=== PATIENT | female | born 1980 | race Caucasian/White ===

== ENCOUNTER 2017-01-06 22:54 | Emergency (ER) | payer MEDICARE, OTHER ==
[2017-01-06 23:04] VITALS: RESP 18
--- NOTE | 2017-01-07 00:15 | ED ---
Female Urogenital HPI - General Chief complaint: Urogenital Stated complaint: Female Time Seen by Provider: 01/06/17 23:20 Source: patient Mode of arrival: ambulatory Limitations: no limitations - Related Data Home Medications Medication Instructions Recorded Confirmed Dextroamphetamine/Amphetamine 20 mg PO DAILY 01/06/17 01/06/17 [Adderall] Paliperidone [Invega] 6 mg PO DAILY 01/06/17 01/06/17 clonazePAM [KlonoPIN] 2 mg PO BID 01/06/17 01/06/17 Allergies Allergy/AdvReac Type Severity Reaction Status Date / Time No Known Allergies Allergy Verified 01/06/17 23:04 Review of Systems ROS Statement: Those systems with pertinent positive or pertinent negative responses have been documented in the HPI. ROS Other: All systems not noted in ROS Statement are negative. Past Medical History Past Medical History: No Reported History History of Any Multi-Drug Resistant Organisms: None Reported Past Surgical History: Orthopedic Surgery Additional Past Surgical History / Comment(s): Left ankle surgery Past Psychological History: Anxiety, Bipolar, Depression, Panic Disorder Smoking Status: Never smoker Past Alcohol Use History: None Reported Past Drug Use History: None Reported General Exam Limitations: no limitations Course Vital Signs 01/06/17 23:02 Temperature 98.0 F Pulse Rate 71 Respiratory 18 Rate Blood Pressure 118/67 O2 Sat by Pulse 100 Oximetry Disposition Clinical Impression: No problem, feared complaint unfounded Disposition: HOME SELF-CARE Condition: Good Instructions: Vaginal Foreign Body (ED) Referrals: Jeremy Key MD [Primary Care Provider] - 1-2 days Hilary Salmon MD [STAFF PHYSICIAN] - 1-2 days
[2017-01-07 00:32] VITALS: BP 135/65; PULSE 69; TEMP 97.7
== END 2017-01-07 00:45 | disposition home or self-care (01) ==
LOC: EC 22:54
DX: N94.9 Unspecified condition associated with female genital organs and menstrual cycle (principal); F31.9 Bipolar disorder, unspecified; F41.9 Anxiety disorder, unspecified; F41.0 Panic disorder [episodic paroxysmal anxiety]; Z79.899 Other long term (current) drug therapy
CPT/HCPCS: 99283

== ENCOUNTER → 2017-01-09 | Outpatient (CLI) | payer MEDICARE, OTHER ==
[2017-01-10 04:41] LABS: HIV-1/HIV-2 Ab Screen NONREAC (NON REAC)
== END ==
LOC: LABWHC1 14:14
PROVIDERS: ATTEND Obstetrics & Gynecology
DX: R53.83 Other fatigue (principal); Z11.3 Encounter for screening for infections with a predominantly sexual mode of transmission
CPT/HCPCS: 36415; 86780; 87389

== ENCOUNTER 2017-02-10 22:19 | Inpatient (IN) | payer MEDICARE, MEDICAID ==
[2017-02-10] MEDS ORDERED: IBUPROFEN 600 MG TAB PO STA (23:08)
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
[2017-02-11] MEDS ORDERED: clonazePAM 1 MG TAB PO STA (01:46)
[2017-02-11] MEDS ORDERED: ACETAMINOPHEN TAB 325 MG TAB PO PRN (02:46)
[2017-02-11] MEDS ORDERED: MAGNESIUM HYDROXIDE 2,400 MG/10 ML CUP PO PRN (02:46)
[2017-02-11] MEDS ORDERED: OLANZapine 5 MG TAB PO PRN (02:49)
[2017-02-11 03:50] LABS: Appearance,Urine Clear (Clear); Bacteria,Urine Occasional /hpf; Bilirubin,Urine Negative (Negative); Glucose,Urine (UA) Negative (Negative); Granular Casts,Urine 1 /lpf (0); Ketones,Urine Negative (Negative); Leukocyte Esterase,Urine Negative (Negative); Mucus,Urine Rare /hpf; Nitrite,Urine Negative (Negative); PH, Urine 6.5 (5.0-8.0); Particle Count 1752; Protein,Urine Negative (Negative); RBC,Urine 3 /hpf (0-5); Specific Gravity,Urine 1.015 (1.001-1.035); Squamous Epithelial Cell,Urine 1 /hpf (0-4); UA Billing (MACRO vs. MICRO) MICRO; Urobilinogen,Urine <2.0 mg/dL (<2.0); WBC,Urine 1 /hpf (0-5)
[2017-02-11] MEDS: LORazepam 1 MG TAB PO PRN (05:46)
[2017-02-11 08:48] LABS: Basophils % (A) 1 %; CH 29.7; CHCM 34.5; Eosinophils # (A) 0.2 k/uL (0-0.7); Eosinophils % (A) 4 %; HCT 38.7 % (34.0-46.0); HDW 2.54; HGB 13.5 gm/dL (11.4-16.0); Luc # (Auto) 0.14; Luc % (Auto) 3; Lymphocytes % (A) 38 %; MCH 30.2 pg (25.0-35.0); MCHC 34.9 g/dL (31.0-37.0); MCV 86.6 fL (80.0-100.0); Monocytes # (A) 0.3 k/uL (0-1.0); Monocytes % (A) 6 %; Neutrophils # (A) 2.5 k/uL (1.3-7.7); Neutrophils % (A) 49 %; RBC 4.47 m/uL (3.80-5.40); RDW 12.8 % (11.5-15.5); WBC 5.2 k/uL (3.8-10.6); WBC (Perox) 5.12
[2017-02-11 09:47] LABS: ALT 29 U/L (9-52); AST 27 U/L (14-36); Alkaline Phosphatase 75 U/L (38-126); Anion Gap 12 mmol/L; Blood Urea Nitrogen 9 mg/dL (7-17); Calcium 9.4 mg/dL (8.4-10.2); Carbon Dioxide 25 mmol/L (22-30); Chloride 104 mmol/L (98-107); Glucose 95 mg/dL (74-99); Non-African American GFR(MDRD) >60 (>60 ml/min/1.73 sqM); Potassium 3.6 mmol/L (3.5-5.1); Sodium 141 mmol/L (137-145); Total Bilirubin 0.6 mg/dL (0.2-1.3); Total Protein 7.8 g/dL (6.3-8.2)
[2017-02-11] MEDS ORDERED: IBUPROFEN 600 MG TAB PO PRN (10:34)
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
[2017-02-11] MEDS: DIAZEPAM 5 MG TAB PO SCH ×3 (13:07→21:04)
[2017-02-11] MEDS: LURASIDONE 40 MG TAB PO SCH (13:07)
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
[2017-02-11] MEDS ORDERED: LURASIDONE 40 MG TAB PO SCH (21:00)
[2017-02-12] MEDS: DIAZEPAM 5 MG TAB PO SCH ×2 (06:31→21:26)
[2017-02-12] MEDS: LURASIDONE 40 MG TAB PO SCH ×2 (08:40→20:02)
--- NOTE | 2017-02-12 19:37 | P.PN ---
Progress Note - Text DATE OF SERVICE: 02/12/2017 CHIEF COMPLAINT: The patient was admitted due to anger outbursts with agitation , aggressive behavior, paranoia, auditory hallucinations and history of rage attacks. She has a history of bipolar affective disorder and multiple psychiatric hospitalizations. She was admitted on petition for involuntary hospitalization. INTERVAL HISTORY: The patient has been doing fair. She had some ups and downs in her behavior and function. Last evening staff noted that she had an episode where she was in her room singing loudly and laughing quite intensely. When I asked the patient how she slept she said fine and that she had slept all night. When I noted that she had this behavior she then said that she recalled staying up for quite a while and that it was hard for her to fall asleep. She accepted the idea that she probably only slept for 3 hours. Today she has been up and about. She attended to groups and was appropriate without signs of manic or hypomanic behaviors. She said that she has some anxiety though she has not felt any anger or rageful feelings. She believes the medications have been helping her. She hasn't had change in her general health. She tolerates her psychotropic medications. MENTAL STATUS EXAM: Patient gave good eye contact, though it is noted she had a somewhat staring gaze. Psychomotor activity was rather stiff. She had a somewhat masked facies throughout most of the interview though at the end of the interview she had a broad smile. When she smiled she made some comments about how she feels her brain is pulled one way and another. For most of the interview she had a somewhat reserved almost apprehensive manner. Her thoughts were clear and coherent. There was no flight of ideas, loose association or tangential thinking. Her affect was mostly blunted. Her mood reserved. She appeared somewhat distressed. ASSESSMENT: I will continue the current diagnosis and treatment plan. I will increase latuda to 40 mg twice a day which she will take after meals, morning and supper. Dr. Marquez has written to taper the patient off of Valium. I had an extensive discussion regarding her current medications and guidelines relating to treatment of bipolar disorder. The patient does indicate that she may consider switching psychiatrists from Dr. Fischer. This is something we' ll discuss with her further. We will focus on stabilization and discharge planning.
[2017-02-13] MEDS: LURASIDONE 40 MG TAB PO SCH ×2 (08:51→20:27)
[2017-02-13] MEDS ORDERED: DIAZEPAM 5 MG TAB PO SCH (09:00)
[2017-02-13] MEDS: LORazepam 1 MG TAB PO PRN ×2 (11:48→18:57)
[2017-02-14] MEDS: MAG HYDROX/AL HYDROX/SIMETH 30 ML CUP PO PRN (08:56)
[2017-02-14] MEDS: LURASIDONE 40 MG TAB PO SCH ×2 (08:57→19:07)
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
[2017-02-14] MEDS: LORazepam 1 MG TAB PO PRN (13:33)
[2017-02-15] MEDS ORDERED: ZIPRASIDONE 20 MG VIAL IM STA (06:35)
[2017-02-15] MEDS ORDERED: WATER FOR INJECTION, STERILE 10 ML IV ONE (06:42)
[2017-02-15] MEDS: LURASIDONE 40 MG TAB PO SCH ×2 (10:19→19:04)
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
[2017-02-15] MEDS: LORazepam 1 MG TAB PO PRN (19:28)
[2017-02-16] MEDS: LURASIDONE 40 MG TAB PO SCH ×2 (08:23→18:36)
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
[2017-02-16] MEDS: LORazepam 1 MG TAB PO PRN (23:28)
[2017-02-16] MEDS: ZIPRASIDONE 20 MG VIAL IM PRN (23:29)
[2017-02-17] MEDS: LURASIDONE 40 MG TAB PO SCH ×2 (08:38→18:49)
[2017-02-17] MEDS: LORazepam 1 MG TAB PO PRN ×2 (09:32→20:39)
[2017-02-17] MEDS: MAG HYDROX/AL HYDROX/SIMETH 30 ML CUP PO PRN (10:45)
--- NOTE | 2017-02-17 14:38 | P.PN ---
Progress Note - Text INTERVERAL HISTORY: She was discussed nursing staff, report that last night Elise again became distressed with anger outburst, requiring Sander IM. Today she remained in bed, stating she didn't want to get up that she was tired. *About what happened last night she was unable to explain but said that she would like to take a medicine rather than injection. We discussed again the possibility of a mood stabilizer and she was open to that possibility and would agree to taking Depakote. Staff have noticed that she does become easily irritated when asked to do certain things comply with rules on the unit. Bipolar disorder, MRE manic with psychotic features PLAN: Continue inpatient psychiatric hospitalization, for safety, and for treatment. Suicide precaution every 15 minute checks Continue Latuda 40 mg twice a day. Start Depakote tonight 500 mg, titrate up. Attempted to call her father at his request but did not reach him at 2 numbers that I was provided with Discuss discharge plans, rifle case repairer, and outpatient psychiatrist. Milieu therapy
[2017-02-17] MEDS: DIVALPROEX ER 500 MG TAB.ER.24H PO SCH (20:39)
[2017-02-17] MEDS ORDERED: ZIPRASIDONE 20 MG VIAL IM ONE (20:47)
[2017-02-17] MEDS ORDERED: WATER FOR INJECTION, STERILE 10 ML IV ONE (20:47)
[2017-02-17] MEDS: ZIPRASIDONE 20 MG VIAL IM PRN (21:02)
[2017-02-18] MEDS: LURASIDONE 40 MG TAB PO SCH ×2 (08:38→20:48)
[2017-02-18] MEDS: DIVALPROEX ER 500 MG TAB.ER.24H PO SCH (08:38)
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
[2017-02-18] MEDS: ZIPRASIDONE 20 MG CAP PO SCH ×2 (14:13→20:48)
[2017-02-18] MEDS: LORazepam 1 MG TAB PO PRN (22:06)
[2017-02-19] MEDS: ZIPRASIDONE 20 MG CAP PO SCH (08:12)
[2017-02-19] MEDS: DIVALPROEX ER 500 MG TAB.ER.24H PO SCH (08:13)
[2017-02-19] MEDS ORDERED: LURASIDONE 40 MG TAB PO SCH (09:00)
--- NOTE | 2017-02-19 12:54 | P.PN ---
Progress Note - Text INTERVERAL HISTORY: She was discussed in team treatment meeting, reviewed record , and met with patient. Staff reports that there was no outbursts last night, however staff recalls that they saw her in her room alone talking and laughing. She was seen in the hallway asked her to come to my office. She reports that she thinks the combination of the Latuda, the Geodon and the Ativan are working fine. Explained that we wouldn't be able to keep Latuda and Geodon and so were reducing Latuda while we are increasing Geodon. Patient denies hearing voices. MENTAL STATUS EXAM:Patient alert and oriented 3, good eye contact, fair groomed in street clothing. Speech normal volume, rate, decreased production. Coherent, logical and circumstantial thought process. No KYUNG, no FOI. [No TB/TW /TI] Denied auditory and visual hallucinations. Denied paranoid ideation, delusions or IOR. Mood blunt, affect flat, congruent with mood. Denies suicidal ideation, denies homicidal ideation. Insight minimal; Judgment grossly intact for treatment purposes Bipolar disorder, MRE manic with psychotic features PLAN: Continue inpatient psychiatric hospitalization, for safety, and for treatment. Suicide precaution every 15 minute checks Taper Latuda 20mg twice a day. Increase Geodon 40mg now after lunch and after dinner. Increase Depakote tonight 1000 mg, titrate up. Discuss discharge plans, top case assembler, and outpatient psychiatrist. Milieu therapy
[2017-02-19] MEDS: LORazepam 1 MG TAB PO PRN (16:42)
[2017-02-19] MEDS ORDERED: DIVALPROEX ER 500 MG TAB.ER.24H PO SCH (21:00)
[2017-02-19] MEDS: LURASIDONE 40 MG TAB PO SCH (21:19)
[2017-02-19] MEDS: ZIPRASIDONE 40 MG CAP PO SCH (21:21)
[2017-02-20] MEDS: LORazepam 1 MG TAB PO PRN ×2 (00:59→16:23)
[2017-02-20] MEDS: ZIPRASIDONE 40 MG CAP PO SCH ×2 (08:43→21:10)
--- NOTE | 2017-02-20 14:08 | P.PN ---
Progress Note - Text INTERVERAL HISTORY: She was discussed in team treatment meeting, reviewed record , and met with patient. It was noted that she again had a problem last night came out of her room crying unable to be consoled. But she did not display anger or an outburst as she had the previous 3 nights. It was noted that the unit was in flux due to some problems. She was not seen talking to herself. Patient has not been seen for most of the day not attending groups, she was in bed did not want to get up but stated that she was okay. We discussed her medicine she is still agreeable to the increase of Geodon with stopping Latuda. She is also in agreement with increasing Depakote. Patient denies hearing voices. MENTAL STATUS EXAM:Patient asleep, awoke, no eye contact. Speech low volume, decreased rate, decreased production. Coherent, logical and circumstantial thought process. No KYUNG, no FOI. [No TB/TW /TI] Denied auditory and visual hallucinations. Denied paranoid ideation, delusions or IOR. Mood blunt, affect flat, congruent with mood. Denies suicidal ideation, denies homicidal ideation. Insight minimal; Judgment grossly intact for treatment purposes Bipolar disorder, MRE manic with psychotic features PLAN: Continue inpatient psychiatric hospitalization, for safety, and for treatment. Suicide precaution every 15 minute checks Taper Latuda 20mg twice a day. Increase Geodon to 60mg bid tomorrow. Increase Depakote tonight 1500 mg, titrate up. Discuss discharge plans, case resource manager, and outpatient psychiatrist. Milieu therapy
[2017-02-20] MEDS: LURASIDONE 40 MG TAB PO SCH (21:09)
[2017-02-20] MEDS: DIVALPROEX ER 500 MG TAB.ER.24H PO SCH (21:10)
[2017-02-21] MEDS: ZIPRASIDONE 40 MG CAP PO SCH (08:10)
--- NOTE | 2017-02-21 09:05 | P.PN ---
Progress Note - Text INTERVERAL HISTORY: She was discussed in team treatment meeting, reviewed record , and met with patient. Staff reported that patient did not have any problems, no outbursts no crying spells. She did request Ativan twice yesterday, it was felt that because she had to go before the air turning machine feeder and discuss her decision about either deferral or to be court ordered was causing anxiety. She slept quite a bit yesterday. Today she again was in bed this morning claiming to be too tired to get up, around 2 PM she was willing to get up out of bed came to the office. Patient states that she thinks that the medicines are working well and would like to not change anything. We discussed the issue about having to medicines Latuda and Geodon from the same class that it's not a good idea to have both of them on at the same time. She agreed to let me discontinue the Latuda at bedtime tonight. She spoke about being in [facility] in the future treatment plan. Staff did not report that she was noted speaking to herself but she did state that she saw something last night near the window. States that maybe she is always going to hear some voices and sees some things no matter what. MENTAL STATUS EXAM:Patient asleep, awoke, no eye contact. Speech low volume, decreased rate, decreased production. Coherent, logical and circumstantial thought process. No KYUNG, no FOI. [No TB/TW /TI] Denied auditory and visual hallucinations. Denied paranoid ideation, delusions or IOR. Mood blunt, affect flat, congruent with mood. Denies suicidal ideation, denies homicidal ideation. Insight minimal; Judgment grossly intact for treatment purposes Bipolar disorder, MRE manic with psychotic features PLAN: Continue inpatient psychiatric hospitalization, for safety, and for treatment. Suicide precaution every 15 minute checks Discontinue Latuda 20mg Increase Geodon to 60mg bid starting tonight Continue Depakote tonight 1500 mg, check level in 4 days Discuss discharge plans, [facility] social work case manager and will need a psychiatrist assigned. Milieu therapy
[2017-02-21] MEDS: DIVALPROEX ER 500 MG TAB.ER.24H PO SCH (20:09)
[2017-02-21] MEDS: ZIPRASIDONE 60 MG CAP PO SCH (20:09)
[2017-02-22] MEDS: ZIPRASIDONE 60 MG CAP PO SCH (08:34)
[2017-02-22 09:36] VITALS: BMI 29.5
[2017-02-22] MEDS ORDERED: ZIPRASIDONE 80 MG CAP PO SCH (13:32)
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
[2017-02-22] MEDS: ZIPRASIDONE 80 MG CAP PO SCH ×2 (14:35→20:19)
[2017-02-22] MEDS: DIVALPROEX ER 500 MG TAB.ER.24H PO SCH (20:19)
[2017-02-23] MEDS: ZIPRASIDONE 80 MG CAP PO SCH ×2 (09:21→21:09)
--- NOTE | 2017-02-23 16:48 | P.PN ---
Progress Note - Text DATE OF SERVICE: 02/23/2017 CHIEF COMPLAINT: The patient was admitted due to anger outbursts with agitation , aggressive behavior, paranoia, auditory hallucinations and history of rage attacks. She has a history of bipolar affective disorder and multiple psychiatric hospitalizations. She was admitted on petition for involuntary hospitalization. INTERVAL HISTORY: [The patient has been doing. Overall she seems to be more organized in her thoughts. She has been more appropriate in her behavior. She had a a quiet evening last night. She slept 6 hours. She attends groups sporadically. At times she can appear to be a caught up in internal stimuli where she will smile and laugh for no apparent reason. She socializes with others. He hasn't had change in her general health. She tolerates her psychotropic medications.] MENTAL STATUS EXAM: The patient sat with some restlessness. She had a somewhat staring gaze. She should questions with direct responses. The most part her thoughts were clear and coherent. At times he made a few tangential statements. Her affect was in a reasonable range. At times she smiled which did not seem connected to the subject at hand. Her mood was even. She didn't appear to be distressed. ASSESSMENT: I will continue the current diagnosis and treatment plan. The patient appears to exhibit some underlying thought disorder however overall she has made progress. We reviewed discharge plans and the patient is hopeful to be a discharge early in the week.
[2017-02-23] MEDS: DIVALPROEX ER 500 MG TAB.ER.24H PO SCH (21:08)
[2017-02-24] MEDS: LORazepam 1 MG TAB PO PRN ×2 (00:48→21:31)
[2017-02-24] MEDS: ZIPRASIDONE 80 MG CAP PO SCH ×2 (08:31→20:47)
--- NOTE | 2017-02-24 08:33 | P.PN ---
Progress Note - Text Interval history: Patient reports that she is feeling better. She is seen in cross coverage for Dr. Montes/Isaiah. She reports that she slept about 6-8 hours last night. She did eat some breakfast. She does feel she is doing well on the new medications. She does not seem to voice any adverse side effects. Mental status exam: She is alert and cooperative with the interview. Her mood seems to be improved. She denies any thoughts of harm to self or others. She says that sometimes she will see shadows and occasionally hears some things but does not currently appear to be exhibiting any psychosis symptoms. Her thought processes are organized. She is not showing any agitation. Plan: We'll maintain current psychotropic medications. Status appears to be improving. We'll continue to cover this patient through the weekend.
[2017-02-24] MEDS: DIVALPROEX ER 500 MG TAB.ER.24H PO SCH (20:47)
[2017-02-25] MEDS: ZIPRASIDONE 80 MG CAP PO SCH ×2 (08:20→20:41)
--- NOTE | 2017-02-25 08:49 | P.PN ---
Progress Note - Text Interval history: Patient is seen in cross coverage today for Dr. Montes. She reports that she is feeling better. She describes that she slept 6-8 hours last night. She does not voice any adverse psychotropic medication side effects. She seems to feel that this medication regimen is working well for her. She inquires regarding discharge planning. It looks like she is supposed to get a Depakote level today. Mental status exam: She is alert and cooperative with the interview. Her speech is fluent, not rapid or pressured. Thought processes are organized. Her mood overall appears improved. She denies any thoughts of harm to self or others. She denies any auditory or visual hallucinations. She does not show any agitation. Plan: We'll maintain current psychotropic medication regimen. Depakote levels are going to be drawn. Dr. Montes to resume care this patient. Monitor patient's ongoing response to current regimen.
[2017-02-25] MEDS: DIVALPROEX ER 500 MG TAB.ER.24H PO SCH (22:02)
[2017-02-26] MEDS: LORazepam 1 MG TAB PO PRN (00:55)
[2017-02-26] MEDS: ZIPRASIDONE 80 MG CAP PO SCH ×2 (09:04→21:52)
[2017-02-26] MEDS ORDERED: DIVALPROEX ER 500 MG TAB.ER.24H PO SCH (14:47)
--- NOTE | 2017-02-26 14:56 | P.PN ---
Progress Note - Text INTERVERAL HISTORY: Patient discussed at treatment team meeting, review of record, met with patient. Staff report that patient is doing well she has been participating in groups and that they have noted that her mood is improved. Valproic acid is noted to be on the high side. Patient reports that she feels she is ready to go states she's been here since February 11. Patient was sleeping this afternoon when I woke her up. States that she does sleep at night and feels too sleepy in the day. Patient denies auditory hallucinations, but states she hears other things but no voices. She has not had any outbursts for 5 days. Laboratory Tests 02/25/17 19:47 Valproic Acid 104.9 H* MENTAL STATUS EXAM: Patient is alert, sleepy struggling to stay awake. A little bit irritable by being awoken this afternoon. She is cooperative fair eye contact. Thoughts are organized, no KYUNG no FOI, no delusions. She denies auditory or visual hallucinations. Mood blunt, affect flat, congruent with mood. Denies suicidal ideation, denies homicidal ideation. Insight minimal; Judgment grossly intact for treatment purposes Schizoaffective disorder, bipolar type PLAN: Continue inpatient psychiatric hospitalization, for safety, and for treatment. Suicide precaution every 15 minute checks Continue Geodon to 80mg bid Reduce Depakote tonight 1000 mg, Discuss discharge plans, [facility] nurse case manager and will need a psychiatrist assigned. Milieu therapy
[2017-02-27] MEDS: LORazepam 1 MG TAB PO PRN (01:11)
[2017-02-27 06:37] VITALS: BP 129/58; PULSE 50; RESP 16; TEMP 98.5
[2017-02-27] MEDS: ZIPRASIDONE 80 MG CAP PO SCH (08:55)
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
[2017-02-27] MEDS ORDERED: LORazepam 1 MG TAB PO PRN (09:05)
[2017-02-27] MEDS ORDERED: LORazepam 1 MG TAB PO SCH (21:00)
== END 2017-02-27 14:10 | disposition home or self-care (01) | DRG 885 ==
LOC: EC 22:19 → 3MHU 02-11 02:44
PROVIDERS: ADMIT Psychiatry & Neurology Addiction Medicine; ATTEND Psychiatry & Neurology Addiction Medicine
DX: F25.0 Schizoaffective disorder, bipolar type (principal); F22 Delusional disorders; F41.0 Panic disorder [episodic paroxysmal anxiety]; F43.10 Post-traumatic stress disorder, unspecified; M54.2 Cervicalgia; F41.9 Anxiety disorder, unspecified; Z91.410 Personal history of adult physical and sexual abuse; Z79.899 Other long term (current) drug therapy
CPT/HCPCS: 72040; 80053; 80164; 80306; 81001; 81025; 82075; 84443; 85025; 99285

== ENCOUNTER 2017-03-26 21:17 | Inpatient (IN) | payer MEDICARE, MEDICAID ==
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
[2017-03-27] MEDS ORDERED: ACETAMINOPHEN TAB 325 MG TAB PO PRN (00:30)
[2017-03-27] MEDS ORDERED: ZIPRASIDONE 20 MG VIAL IM PRN (00:30)
[2017-03-27] MEDS ORDERED: MAGNESIUM HYDROXIDE 2,400 MG/10 ML CUP PO PRN (00:30)
[2017-03-27] MEDS ORDERED: MAG HYDROX/AL HYDROX/SIMETH 30 ML CUP PO PRN (00:30)
[2017-03-27 00:39] VITALS: BMI 29.5
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
[2017-03-27] MEDS: ZIPRASIDONE 80 MG CAP PO SCH ×2 (08:48→22:04)
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
[2017-03-27 18:42] LABS: Appearance,Urine Clear (Clear); Bacteria,Urine Rare /hpf; Bilirubin,Urine Negative (Negative); Glucose,Urine (UA) Negative (Negative); Ketones,Urine Negative (Negative); Leukocyte Esterase,Urine Small (Negative); Mucus,Urine Rare /hpf; Nitrite,Urine Negative (Negative); Particle Count 4300; Protein,Urine Trace (Negative); RBC,Urine >182 /hpf (0-5); Specific Gravity,Urine 1.011 (1.001-1.035); Squamous Epithelial Cell,Urine <1 /hpf (0-4); UA Billing (MACRO vs. MICRO) MICRO; Urobilinogen,Urine <2.0 mg/dL (<2.0); WBC,Urine 43 /hpf (0-5)
[2017-03-27] MEDS ORDERED: DIVALPROEX 500 MG TABLET.DR PO SCH (21:00)
[2017-03-27] MEDS: DIVALPROEX ER 500 MG TAB.ER.24H PO SCH (22:03)
[2017-03-28] MEDS: ZIPRASIDONE 80 MG CAP PO SCH ×2 (08:39→21:09)
[2017-03-28 10:00] LABS: Basophils % (A) 1 %; CH 29.5; CHCM 33.2; Eosinophils # (A) 0.2 k/uL (0-0.7); Eosinophils % (A) 3 %; HCT 42.4 % (34.0-46.0); HDW 2.43; HGB 14.3 gm/dL (11.4-16.0); Luc # (Auto) 0.14; Luc % (Auto) 2; Lymphocytes # (A) 2.1 k/uL (1.0-4.8); Lymphocytes % (A) 35 %; MCH 30.2 pg (25.0-35.0); MCHC 33.8 g/dL (31.0-37.0); MCV 89.4 fL (80.0-100.0); Mean Platelet Volume 7.5; Monocytes # (A) 0.3 k/uL (0-1.0); Monocytes % (A) 5 %; Neutrophils # (A) 3.1 k/uL (1.3-7.7); Neutrophils % (A) 54 %; RBC 4.74 m/uL (3.80-5.40); RDW 12.9 % (11.5-15.5); WBC 5.8 k/uL (3.8-10.6); WBC (Perox) 6.12
[2017-03-28 10:16] LABS: ALT 24 U/L (9-52); AST 24 U/L (14-36); Alkaline Phosphatase 59 U/L (38-126); Anion Gap 11 mmol/L; Blood Urea Nitrogen 10 mg/dL (7-17); Calcium 9.2 mg/dL (8.4-10.2); Carbon Dioxide 26 mmol/L (22-30); Chloride 105 mmol/L (98-107); Glucose 63 mg/dL (74-99); Non-African American GFR(MDRD) >60 (>60 ml/min/1.73 sqM); Potassium 3.8 mmol/L (3.5-5.1); Sodium 142 mmol/L (137-145); Total Bilirubin 0.7 mg/dL (0.2-1.3); Total Protein 7.3 g/dL (6.3-8.2)
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
[2017-03-28] MEDS: DIVALPROEX ER 500 MG TAB.ER.24H PO SCH (21:09)
[2017-03-28] MEDS: LORazepam 1 MG TAB PO PRN (23:54)
[2017-03-29 07:02] VITALS: TEMP 97.9
[2017-03-29] MEDS: ZIPRASIDONE 80 MG CAP PO SCH ×2 (08:22→20:37)
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
[2017-03-29] MEDS: DIVALPROEX ER 500 MG TAB.ER.24H PO SCH (20:37)
[2017-03-29] MEDS: LORazepam 1 MG TAB PO PRN (22:56)
[2017-03-30 07:18] VITALS: BP 104/53; PULSE 53; RESP 12
[2017-03-30] MEDS: ZIPRASIDONE 80 MG CAP PO SCH (10:07)
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
== END 2017-03-30 13:50 | disposition home or self-care (01) | DRG 885 ==
LOC: EC 21:17 → 3MHU 03-27 00:10
PROVIDERS: ADMIT Psychiatry & Neurology Psychiatry; ATTEND Psychiatry & Neurology Psychiatry
DX: F31.5 Bipolar disorder, current episode depressed, severe, with psychotic features (principal); F81.9 Developmental disorder of scholastic skills, unspecified
CPT/HCPCS: 80053; 80164; 80306; 81001; 81025; 82075; 84443; 85025; 99285

== ENCOUNTER 2017-08-31 20:57 | Inpatient (IN) | payer MEDICARE, MEDICAID ==
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
[2017-08-31] MEDS ORDERED: ZIPRASIDONE 20 MG VIAL IM STA (23:51)
[2017-08-31] MEDS ORDERED: LORazepam 2 MG/ML INJ IM STA (23:51)
[2017-09-01] MEDS ORDERED: ZIPRASIDONE 20 MG VIAL IM PRN (01:28)
[2017-09-01] MEDS ORDERED: MAGNESIUM HYDROXIDE 2,400 MG/10 ML CUP PO PRN (01:28)
[2017-09-01] MEDS ORDERED: MAG HYDROX/AL HYDROX/SIMETH 30 ML CUP PO PRN (01:28)
[2017-09-01] MEDS ORDERED: ACETAMINOPHEN TAB 325 MG TAB PO PRN (01:28)
[2017-09-01] MEDS ORDERED: LORazepam 1 MG TAB PO PRN (01:28)
[2017-09-01] MEDS ORDERED: DIVALPROEX ER 500 MG TAB.ER.24H PO SCH (09:00)
[2017-09-01 09:13] LABS: Basophils % (A) 1 %; Eosinophils # (A) 0.2 k/uL (0-0.7); Eosinophils % (A) 3 %; HCT 42.4 % (34.0-46.0); HGB 14.3 gm/dL (11.4-16.0); Lymphocytes # (A) 2.2 k/uL (1.0-4.8); Lymphocytes % (A) 37 %; MCH 29.3 pg (25.0-35.0); MCHC 33.7 g/dL (31.0-37.0); MCV 87.1 fL (80.0-100.0); Mean Platelet Volume 7.4; Monocytes # (A) 0.4 k/uL (0-1.0); Monocytes % (A) 7 %; Neutrophils % (A) 50 %; Platelet Count 246 k/uL (150-450); RBC 4.87 m/uL (3.80-5.40); RDW 13.3 % (11.5-15.5)
[2017-09-01 09:25] LABS: ALT 26 U/L (9-52); AST 26 U/L (14-36); Albumin 4.3 g/dL (3.5-5.0); Alkaline Phosphatase 62 U/L (38-126); Anion Gap 12 mmol/L; Blood Urea Nitrogen 7 mg/dL (7-17); Calcium 10.1 mg/dL (8.4-10.2); Carbon Dioxide 27 mmol/L (22-30); Chloride 103 mmol/L (98-107); Glucose 93 mg/dL (74-99); Sodium 142 mmol/L (137-145); Total Bilirubin 0.6 mg/dL (0.2-1.3); Total Protein 7.4 g/dL (6.3-8.2)
--- NOTE | 2017-09-01 13:50 | CONS ---
CONSULTATION ATTENDING PHYSICIAN: Dr. Colon. CONSULTING PHYSICIAN: Dr. Key Consultation regarding medical evaluation. HISTORY OF PRESENT ILLNESS: This young 37-year-old female was admitted to the facility. The patient has had multiple admissions to this institution. She has history of chronic psychiatric ailments which are being addressed by the psychiatrist. I was asked to see the patient for medical evaluation. The patient denies any major complaints at present. She does have some soreness of bilateral thighs, but not hindering her ambulation. The patient apparently is on medications at home, which she has discontinued and precipitating this episode of agitation and readmission. PAST MEDICAL HISTORY: Is primary psychiatric ailment, history of psychiatric ailments. Otherwise, no history of any lung disease, liver disease, kidney disease, ulcers, TB, hepatitis. No history of any rheumatic fever, myocardial infarction, CVA. No history of any diabetes mellitus or any cardiac history. PAST SURGICAL HISTORY: None reported. PERSONAL HISTORY: Nonsmoker. Alcohol, none reported. MEDICATIONS: Included Abilify 20 mg daily, Depakote a 1000 mg daily. The patient apparently has stopped taking her Depakote recently. SOCIAL HISTORY: Patient is single, lives alone. FAMILY MEDICAL HISTORY: Patient is adopted. Father is a retired physician. The patient does have a known biological brother. REVIEW OF SYSTEMS: NEURO: Denies any headaches, dizziness. PSYCH: Presently cooperative, admission yesterday for psychosis. CARDIAC: No chest pain, angina, palpitation. RESPIRATORY: No shortness of breath, cough, hemoptysis. GI: No nausea, vomiting, abdominal pain, diarrhea. : No dysuria, hematuria, urgency. Menses regular. EXTREMITIES: Some pain in the thigh area. CONSTITUTIONAL: Fever, chills. HEMATOLOGIC: No bleeding disorder. PHYSICAL EXAMINATION: Pleasant 37-year-old present in no distress. Vital signs recorded are stable. HEENT: Normocephalic. NECK: No JVD. CHEST: Clear to auscultation and percussion. CARDIAC: Normal S1, S2 with no gallops, murmurs. ABDOMEN: Soft. Bowel sounds normal. No organomegaly. EXTREMITIES: No edema. Good pedal pulses. NEUROLOGICAL: Awake, alert, oriented to place, person. Moves both upper and lower extremities well. Gait is normal. Station stable. LABORATORY EVALUATION: Reveals a normal CBC, chemistry, thyroid function. Valproic acid level was 26.2. ASSESSMENT: 1. Psychosis. 2. Normal physical exam. PLAN: The patient at present stable from medical point of view. Continue care plan by the psychiatrist. The patient's condition discussed with the patient. ALVERTO / MYESHA: [id number] /
--- NOTE | 2017-09-01 14:52 | HP ---
HISTORY AND PHYSICAL DATE OF ADMISSION: 09/01/2017 IDENTIFYING DATA: A 37-year-old single female patient. HISTORY OF PRESENT ILLNESS: Ms. Langley presents to the inpatient psychiatric unit for admission on existing order. She was apparently brought to the hospital related to concerns of noncompliance. Patient states that they were giving her medication and she stopped taking it for a while and then got back on it. She said she had a frustrated moment and took it out on the [facility] people and then apologized. She says she went back on her medication for 4 days. She then states that she just got back on the medication yesterday. She says the police came to her place and brought her to the hospital. Says her mood lately has been pretty good, but then says the truth would be that she is frustrated at moments, impatient and rude. She says her biggest concern is stress and anxiety. She says she can be yelling in her apartment and disturbing the peace or singing out of turn. PSYCHIATRIC HISTORY: The patient most recently has been on Depakote ER and Abilify. It sounds like she has been not fully compliant. She describes both of them as fine, but says she notices with the Depakote that it seems like she is drowsy. She says her dad was suggesting Lamictal to her and she is open to trialing Lamictal. She says this is her sixth inpatient psychiatric admission. She denies any history of suicide attempts. Current psychiatrist is Dr. Santiago through [facility]. She does not currently see a counselor. PSYCHIATRIC FAMILY HISTORY: She says her dad with some depression, brother with stress and anxiety. MEDICAL HISTORY: Per chart history. Denies any medical problems. CURRENT MEDICATIONS: 1. Tylenol p.r.n. 2. Maalox p.r.n. 3. Abilify. 4. Abilify Maintena. 5. Depakote ER. 6. Ativan p.r.n. 7. Milk of Magnesia p.r.n. 8. Geodon p.r.n. DRUG AND ALCOHOL HISTORY: Denies. SOCIAL HISTORY: She lives on her own in an apartment. She is single, never been . No children. She is on SSI. MENTAL STATUS EXAM: She is alert, cooperative with the interview. Her speech is fluent, not rapid or pressured. Thought processes organized. Her mood is described as "frustrated." Affect overall is restricted. She denies any recent thoughts of harm to self or others. Denies any active thoughts of harm to self or others. She says that she gets so angry sometimes she may feel like doing that but would not act on it. She states that sometimes she sees shadows or like someone lying on her bed, but denies any current hallucinations. She does not seem to make any valentín delusional statements. Cognitively, I do not note any significant disorientation or significant memory disturbance. Intellectual functioning. below average to average. Strengths and weaknesses, lives on her own, family support, issues with medication compliance. IMPRESSION: Bipolar disorder, unspecified. PLAN: Patient will be admitted to the inpatient psychiatric unit. She will be placed on a SP50 minute precautions. She will participate in group and activity therapies. Basic laboratory workup will be done. The patient will maintain Abilify at this point in time. She does have concerns of Depakote making her too tired and there has been issues with compliance at this time. Will discontinue Depakote and will trial Lamictal to assist with mood stabilization. Will look into family supports. Estimated length of stay is 3 to 5 days. Prognosis is guarded. MMODL / IJN: [id number] /
[2017-09-01 15:02] LABS: Appearance,Urine Clear (Clear); Bilirubin,Urine Negative (Negative); Blood,Urine Negative (Negative); Color,Urine Light Yellow; Glucose,Urine (UA) Negative (Negative); Ketones,Urine Negative (Negative); Leukocyte Esterase,Urine Negative (Negative); Nitrite,Urine Negative (Negative); PH, Urine 5.5 (5.0-8.0); Protein,Urine Negative (Negative); Specific Gravity,Urine 1.002 (1.001-1.035); Urobilinogen,Urine <2.0 mg/dL (<2.0)
[2017-09-01] MEDS: lamoTRIgine 25 MG TAB PO SCH (21:10)
--- NOTE | 2017-09-02 16:47 | PN ---
PROGRESS NOTE DATE OF SERVICE: 09/02/2017. INTERVAL HISTORY: Patient is seen in cross coverage today for Dr. Colon. She seems to be tolerating the Lamictal well. She describes other than feeling a little bit nervous today, her mood seems to be better overall. She did visit with her dad last night. MENTAL STATUS EXAM: She is alert, pleasant, cooperative. Her responses are brief. She seems to describe improved mood. She denies any thoughts of harm to self or others. No evidence of active psychosis. She does not show any agitation. PLAN: We will maintain Lamictal and Abilify as current. She will be monitored regarding any medication side effects. Monitor her ongoing response. Dr. Colon to resume care of this patient starting tomorrow. ALVERTO / DERIANN: [id number] /
[2017-09-02] MEDS: lamoTRIgine 25 MG TAB PO SCH (21:01)
[2017-09-03 12:20] LABS: Urine Alcohol Negative (Negative); Urine Barbiturate Negative (Negative); Urine Cocaine Negative (Negative); Urine Methadone Negative (Negative); Urine Opiates Negative (Negative); Urine Phencyclidine Negative (Negative)
[2017-09-03] MEDS: lamoTRIgine 25 MG TAB PO SCH (20:11)
--- NOTE | 2017-09-03 23:09 | PN ---
PROGRESS NOTE DATE OF SERVICE: 09/03/2017. CHIEF COMPLAINT: The patient was admitted for auditory hallucinations, anxiety, and disorganized behavior. She had stopped taking her psychotropic medications. INTERVAL HISTORY: Patient has been doing fair. She had a quiet evening last night. He slept well. Today she has been up and about. She attends groups. He comes out in the day area. She tends to have a quiet, somewhat withdrawn manner, though she is generally appropriate in her interactions with others. She was somewhat vague about her situation in regards to either taking medications or not taking medications. She did suggest that when she is off medications, she can be aware that the voices come back to cause her problems. She believes that she has been on the Abilify Maintena for about 5 or 6 doses. She acknowledges that it is hard to keep up with oral medications. She has not had change in her general health. She tolerates psychotropic medications. MENTAL STATUS: Patient gave fair eye contact. Psychomotor activity was a little slowed. Speech was monotone. She does not show a lot of facial expressions. She has a somewhat stoic appearance. Her affect is blunted. Her mood reserved. It was difficult to say if she was distressed. ASSESSMENT: I will continue the current diagnosis and treatment plan. I will continue psychotropic medications the same. I will review issues in terms of followup that she has had through the fall at the [facility]. I discussed her medications with her in terms of indications, side effects, and potential risks. We will continue to focus on stabilization and discharge planning. ALVERTO / MYESHA: [id number] /
[2017-09-04] MEDS ORDERED: ARIPiprazole 400 MG VIAL (NO CHARGE) IM SCH (09:00)
[2017-09-04] MEDS ORDERED: lamoTRIgine 25 MG TAB PO STA (15:20)
--- NOTE | 2017-09-04 17:19 | PN ---
PROGRESS NOTE DATE OF SERVICE: 09/04/2017 CHIEF COMPLAINT: The patient was admitted for auditory hallucinations, anxiety and disorganized behavior. She had stopped taking psychotropic medications. INTERVAL HISTORY: Patient has been doing fairly well. She had a quiet evening last night. She said that she slept well. Today she has been up. She does come out in the day area. She does not interact too much with others though seems to be comfortable in the milieu. She attends groups and is appropriate in her interactions. She did make a comment in group this afternoon as follows: "I take my medicine and feel better, then I stop taking them because I don't think I need them anymore." She was able to discuss this issue as far as the importance of being on her medications consistently. She feels that the Abilify Maintena has been helpful. She had been on Depakote prior to coming into the hospital. Dr. Gupta discontinued that in favor of Lamictal on admission, given that she did not feel it was helping. She has not had change in her general health. She tolerates her psychotropic medications. MENTAL STATUS: Patient gave fair eye contact. She had a somewhat staring gaze. She was slow in her movements and thought. She answered questions appropriately. Her affect was blunted, her mood reserved. It was difficult to say if she was distressed. ASSESSMENT: I will continue the current diagnosis and treatment plan. I will increase Lamictal to 25 mg twice a day. I will continue her Abilify and Abilify Maintena the same. I discussed with her that at this point, given that she is on the Lamictal, we would look to titrate up to at least 100 mg a day. This probably needs to be continued on an outpatient basis. The patient is making progress. I would anticipate discharge by the end of the week. MMODL / IJN: [id number] /
[2017-09-04] MEDS: lamoTRIgine 25 MG TAB PO SCH (20:32)
[2017-09-05] MEDS: lamoTRIgine 25 MG TAB PO SCH ×2 (08:33→20:40)
[2017-09-05] MEDS ORDERED: ARIPiprazole 400 MG VIAL (NO CHARGE) IM SCH (09:00)
--- NOTE | 2017-09-05 17:20 | PN ---
PROGRESS NOTE DATE OF SERVICE: 09/05/2017. CHIEF COMPLAINT: The patient was admitted for auditory hallucinations, anxiety, and disorganized behavior. She has stopped taking her psychotropic medications. INTERVAL HISTORY: Patient has been doing fairly well. She had a quiet evening last night. She slept well. Today she has been up. She says she has attended some groups. She does come out in the day area. She does interact a little with other staff who have known her from previous stays. Say that she is doing much better now than she has had at any previous admissions. The patient says that she is motivated to continue taking her medications. When I discussed with her what were the issues before, where she stopped medications, she did not seem to have much insight. She had stated in group that when she feels better she will stop her medications thinking she does not need them. She could not offer much reassurance about the idea that she would not do the same if things go well for her once she is discharged. She does say that she is willing to continue on the Abilify Maintena shot, even though it is not the most agreeable thing to her. She has not had change in her general health. She tolerates her psychotropic medications. MENTAL STATUS: Patient gave good eye contact. Psychomotor activity was slowed. Speech was monotone. She answered questions with brief responses. Her affect was blunted. Her mood reserved. It was noteworthy that once or twice during the interview when I was mostly looking away, she got a smile on her face. It is not clear if she was in fact responding to any kind of internal stimuli. She did not appear to be distressed. ASSESSMENT: I will continue the current diagnosis and treatment plan. I will continue psychotropic medications the same. The patient has been making progress. We will aim for discharge by the end of the week. MMODL / IJN: [id number] /
[2017-09-06] MEDS: lamoTRIgine 25 MG TAB PO SCH ×2 (08:42→20:37)
--- NOTE | 2017-09-06 22:15 | PN ---
PROGRESS NOTE DATE OF SERVICE: 09/06/2017. CHIEF COMPLAINT: The patient was admitted for auditory hallucinations, anxiety and disorganized behavior. She had stopped taking her psychotropic medications. INTERVAL HISTORY: The patient has been doing fairly well. She had a quiet evening last night. She slept well. Today she has been up. She comes out in the day area. She tends to wander about. She will interact a little with others. She does tend to keep to herself more often than not. She has been cooperative. She will attend groups, though she tends to be on the quiet side. She has not had change in her general health. She tolerates her psychotropic medications. MENTAL STATUS: Patient gave good eye contact. Psychomotor activity was a little slowed. Speech was clear. Her affect was improved. She had a little broader range of affect. Her mood was even. She did not appear to be distressed. ASSESSMENT: I will continue the current diagnosis and treatment plan. I will continue psychotropic medications the same. Patient is making good progress. We are going to discharge the patient tomorrow. ALVERTO / MYESHA: [id number] /
[2017-09-07 03:16] VITALS: TEMP 97.9
[2017-09-07] MEDS: lamoTRIgine 25 MG TAB PO SCH (08:32)
[2017-09-07 08:34] VITALS: BP 122/58; PULSE 65; RESP 20
--- NOTE | 2017-09-07 11:31 | DS ---
DISCHARGE SUMMARY DATE OF SERVICE: 09/07/2017 DATE OF ADMISSION: 09/01/2017 DATE OF DISCHARGE: 09/07/2017 ADMISSION DIAGNOSIS: Bipolar disorder, unspecified. DISCHARGE DIAGNOSIS: Schizophrenia with bipolar features. HISTORY OF PRESENT ILLNESS: The patient is a 37-year-old female. She has long-term psychiatric issues. She has had a number of previous psychiatric hospitalizations with her last at this facility being March 27, 2017. At that time, she was admitted for having auditory hallucinations, paranoia, fear of leaving her apartment and poor function. She was discharged on Geodon 80 mg twice a day and Depakote ER 1000 mg a day. The patient was not able to provide clear details. At some point after her last hospitalization she got started on Abilify Maintena 400 mg IM monthly. She says that she has had about 6 months worth of the medication. Current medications on admission included Abilify Maintena 400 mg IM with her last injection approximately August 07, Depakote ER 1000 mg a day and Abilify 20 mg a day. She had stopped taking her oral medications at some point over the last several weeks prior to admission. She apparently would not respond to [facility] when they came to her home. Four days prior to admission, she agreed to go back on medications and did accept contacts from [facility]. She was admitted on a pickup order relating to her ongoing court order for treatment. She was admitted for further evaluation. PAST MEDICAL HISTORY AND PHYSICAL EXAM: As per medical consultation of Dr. Key. MENTAL STATUS EXAM: The patient presented appropriately on interview. Her thought process was organized. She had a restricted affect. She was denying any thoughts of harm to self or others. She reported seeing shadows that seem to be some kind of hallucinations. There were no valentín delusional statements. Cognition was clear. COURSE OF HOSPITALIZATION: Patient was admitted for comprehensive medical psychiatric and psychosocial evaluation. She was engaged in individual and group therapeutic activities. On admission, the admitting psychiatrist discontinued Depakote and started the patient on Lamictal 25 mg. She was continued on Abilify 20 mg a day. On September 04, she received Abilify Maintena 400 mg IM. Earlier on in her hospitalization, the patient had a quite withdrawn manner. She would wander about the unit. She would walk in a very slow almost robot like way. She would have a staring gaze when people engaged her. She did not interact much with others. She did not make efforts to attend groups. As her hospitalization progressed, she showed gradual improvement. She became a little more interactive. She began showing a broader range of emotional response. She would smile some appropriately. She began attending groups. Staff who knew her well from previous admissions stated that she seemed to be doing about the best that they had ever seen her compared to previous admissions. She was cooperative. She continued to have a somewhat stilted manner in how she presented herself to others. She was more fluid in her speech. Her thoughts were clear. She did not exhibit any outward signs of hallucinations or delusional thoughts. She was able to engage appropriately in discharge planning. CONDITION AT DISCHARGE: The patient was stable. Mood improved. Thoughts were clear. She showed no indication of thoughts of harm to self or others. She tolerated her medications well. RECOMMENDATIONS AND FOLLOWUP: The patient is discharged to home. She lives independently. DISCHARGE MEDICATIONS: 1. Abilify 20 mg a day. 2. Lamictal 25 mg twice a day. 3. Abilify Maintena 400 mg IM with last dose being September 04, 2017. It is recommended to consider titrating up on Lamictal to a therapeutic level. She has followup with [facility], 09/08/2017 at 11 a.m. and is referred back to Dr. Key for primary care. ALVERTO / MYESHA: [id number] /
== END 2017-09-07 12:21 | disposition home or self-care (01) | DRG 885 ==
LOC: EC 20:57 → 3MHU 09-01 00:45
PROVIDERS: ADMIT Psychiatry & Neurology Psychiatry; ATTEND Psychiatry & Neurology Psychiatry
DX: F20.89 Other schizophrenia (principal); F41.0 Panic disorder [episodic paroxysmal anxiety]; Z79.899 Other long term (current) drug therapy; Z81.8 Family history of other mental and behavioral disorders
CPT/HCPCS: 80053; 80164; 80306; 81003; 81025; 82075; 84443; 85025; 96372; 99285

== ENCOUNTER → 2018-02-01 | Outpatient (CLI) | payer MEDICARE, OTHER ==
--- NOTE | 2018-02-01 10:14 | MM ---
Reason for exam: screening (asymptomatic). Baseline mammogram. History: Patient is nulliparous. Physical Findings: Nurse did not find any significant physical abnormalities on exam. MG 3D Screening Mammo W/Cad Bilateral CC and MLO view(s) were taken. The breast tissue is heterogeneously dense. This may lower the sensitivity of mammography. There is no discrete abnormality. These results were verbally communicated with the patient and result sheet given to the patient on 02/01/18. ASSESSMENT: Benign, BI-RAD 2 RECOMMENDATION: Routine screening mammogram of both breasts at age 42.
== END | disposition home or self-care (01) ==
LOC: RADMAMWWP 09:11
PROVIDERS: ATTEND Obstetrics & Gynecology
DX: Z12.31 Encounter for screening mammogram for malignant neoplasm of breast (principal)
CPT/HCPCS: 77063; 77067

== ENCOUNTER → 2018-09-18 | Outpatient (CLI) | payer MEDICARE, OTHER ==
[2018-09-18 15:52] LABS: Albumin 4.2 g/dL (3.80-4.90); Albumin/Globulin Ratio 1.68 (1.60-3.17); Bilirubin, Conjugated 0.2 mg/dL (0.20-0.40); Bilirubin,Unconjugated 0.2 mg/dL; Globulin 2.5 g/dL (1.6-3.3); Total Bilirubin 0.4 mg/dL (0.3-1.2); Total Protein 6.7 g/dL (6.2-8.2)
[2018-09-18 16:01] LABS: T4, Free (Free Thyroxine) 1.4 ng/dL (0.80-1.80)
[2018-09-18 16:42] LABS: Hemoglobin A1C 5.2 % (4.0-6.0)
== END | disposition home or self-care (01) ==
LOC: LABWHC1 08:31
PROVIDERS: ATTEND Psychiatry & Neurology Psychiatry
DX: F31.2 Bipolar disorder, current episode manic severe with psychotic features (principal)
CPT/HCPCS: 36415; 80076; 82947; 83036; 84439; 84443

== ENCOUNTER → 2019-06-04 | Outpatient (CLI) | payer MEDICARE, OTHER ==
[2019-06-04 14:21] LABS: Basophils % (A) 0 %; Eosinophils # (A) 0.1 k/uL (0-0.7); Eosinophils % (A) 2 %; HCT 38.6 % (34.0-46.0); HGB 12.9 gm/dL (11.4-16.0); Lymphocytes # (A) 1.3 k/uL (1.0-4.8); Lymphocytes % (A) 17 %; MCH 28.7 pg (25.0-35.0); MCHC 33.5 g/dL (31.0-37.0); MCV 85.6 fL (80.0-100.0); Mean Platelet Volume 6.5; Monocytes # (A) 0.3 k/uL (0-1.0); Monocytes % (A) 4 %; Neutrophils # (A) 5.8 k/uL (1.3-7.7); Neutrophils % (A) 76 %; Platelet Count 235 k/uL (150-450); RBC 4.51 m/uL (3.80-5.40); RDW 12.2 % (11.5-15.5); WBC 7.6 k/uL (3.8-10.6)
[2019-06-04 18:57] LABS: African American GFR (CKD) 109.2 (60.0-200.0); Albumin 3.9 g/dL (3.80-4.90); Albumin/Globulin Ratio 1.63 (1.60-3.17); Anion Gap 12.6 mmol/L (4.00-12.00); BUN/Creat Ratio 16.25 Ratio (12.00-20.00); Calcium 8.8 mg/dL (8.7-10.3); Carbon Dioxide 21.4 mmol/L (21.6-31.8); Chol/HDL Ratio 3.67; Globulin 2.4 g/dL (1.6-3.3); LDL Cholesterol,Calculated 126.6 mg/dL (0.0-131.0); Potassium 4.1 mmol/L (3.5-5.5); Total Bilirubin 0.4 mg/dL (0.2-1.2); Total Protein 6.3 g/dL (6.2-8.2); VLDL Calculation 12.4 mg/dL (5.00-40.00)
[2019-06-04 20:59] LABS: Estimated Average Glucose 108.28; Hemoglobin A1C 5.4 % (4.0-6.0)
== END | disposition home or self-care (01) ==
LOC: LABWHC1 13:27
PROVIDERS: ATTEND Psychiatry & Neurology Psychiatry
DX: Z51.81 Encounter for therapeutic drug level monitoring (principal); Z79.899 Other long term (current) drug therapy
CPT/HCPCS: 36415; 80053; 80061; 83036; 84443; 85025

== ENCOUNTER → 2019-11-14 | Outpatient (CLI) | payer MEDICARE, OTHER ==
[2019-11-14 17:22] LABS: HIV 2 AB Non-Reactive (Non-Reactive); HIV AB P24 Non-Reactive (Non-Reactive); HIV P24 AG Non-Reactive (Non-Reactive)
== END | disposition home or self-care (01) ==
LOC: LABWHC1 08:37
PROVIDERS: ATTEND Obstetrics & Gynecology
DX: Z11.3 Encounter for screening for infections with a predominantly sexual mode of transmission (principal)
CPT/HCPCS: 36415; 86780; 87390

== ENCOUNTER 2019-11-30 17:54 | Emergency (ER) | payer MEDICARE, OTHER ==
[2019-11-30 18:07] VITALS: BP 114/81; PULSE 98; RESP 18; TEMP 98.7
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
== END 2019-11-30 18:50 | disposition home or self-care (01) ==
LOC: EC 17:54
DX: Z00.00 Encounter for general adult medical examination without abnormal findings (principal); F31.9 Bipolar disorder, unspecified
CPT/HCPCS: 99283

== ENCOUNTER 2020-05-14 23:49 | Emergency (ER) | payer MEDICARE, OTHER ==
[2020-05-15 01:40] LABS: Appearance,Urine Clear (Clear); Bacteria,Urine Few /hpf; Bilirubin,Urine Negative (Negative); Blood,Urine Trace (Negative); Color,Urine Light Yellow; Glucose,Urine (UA) Negative (Negative); Ketones,Urine Negative (Negative); Leukocyte Esterase,Urine Negative (Negative); Nitrite,Urine Negative (Negative); PH, Urine 6.5 (5.0-8.0); Protein,Urine Negative (Negative); RBC,Urine <1 /hpf (0-5); Specific Gravity,Urine 1.004 (1.001-1.035); Squamous Epithelial Cell,Urine 1 /hpf (0-4); Urobilinogen,Urine <2.0 mg/dL (<2.0); WBC,Urine 1 /hpf (0-5)
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
[2020-05-15 02:07] VITALS: BP 123/78; PULSE 83; RESP 18; TEMP 98.8
== END 2020-05-15 02:00 | disposition home or self-care (01) ==
LOC: EC 23:49
DX: R52 Pain, unspecified (principal); R09.81 Nasal congestion; F41.9 Anxiety disorder, unspecified; F31.9 Bipolar disorder, unspecified; F41.0 Panic disorder [episodic paroxysmal anxiety]; Z20.828 Contact with and (suspected) exposure to other viral communicable diseases
CPT/HCPCS: 99283; 81001; 81025; U0003

== ENCOUNTER → 2020-07-21 | Outpatient (CLI) | payer MEDICARE, OTHER ==
[2020-07-21 11:07] LABS: Basophils % (A) 1 %; Eosinophils # (A) 0.2 k/uL (0-0.7); Eosinophils % (A) 2 %; HCT 42.3 % (34.0-46.0); HGB 14.5 gm/dL (11.4-16.0); Lymphocytes # (A) 2.1 k/uL (1.0-4.8); Lymphocytes % (A) 29 %; MCHC 34.2 g/dL (31.0-37.0); MCV 84.8 fL (80.0-100.0); Monocytes # (A) 0.4 k/uL (0-1.0); Monocytes % (A) 5 %; Neutrophils # (A) 4.5 k/uL (1.3-7.7); Neutrophils % (A) 61 %; Platelet Count 289 k/uL (150-450); RBC 4.99 m/uL (3.80-5.40); WBC 7.3 k/uL (3.8-10.6)
[2020-07-21 17:19] LABS: Hemoglobin A1C 5.4 % (4.0-6.0)
[2020-07-21 17:20] LABS: African American GFR (CKD) 108.4 (60.0-200.0); Albumin 4.2 g/dL (3.80-4.90); Albumin/Globulin Ratio 1.5 (1.60-3.17); Anion Gap 10.4 mmol/L (4.00-12.00); Calcium 9.6 mg/dL (8.7-10.3); Carbon Dioxide 25.6 mmol/L (21.6-31.8); Chol/HDL Ratio 3.52; Globulin 2.8 g/dL (1.6-3.3); Non-African American GFR(CKD) 93.5 (60.0-200.0); Potassium 3.9 mmol/L (3.5-5.5); Total Bilirubin 0.5 mg/dL (0.2-1.2)
[2020-07-21 17:28] LABS: T4, Free (Free Thyroxine) 1.2 ng/dL (0.80-1.80)
== END | disposition home or self-care (01) ==
LOC: LABWHC1 09:59
PROVIDERS: ATTEND Psychiatry & Neurology Psychiatry
DX: Z51.81 Encounter for therapeutic drug level monitoring (principal); Z79.899 Other long term (current) drug therapy
CPT/HCPCS: 36415; 80053; 80061; 83036; 84439; 84443; 85025

== ENCOUNTER 2021-05-27 00:01 | Inpatient (IN) | payer MEDICARE, MEDICAID ==
[2021-05-27] MEDS ORDERED: ZIPRASIDONE 20 MG CAP PO ONE (01:00)
[2021-05-27 03:17] LABS: Appearance,Urine Clear (Clear); Bacteria,Urine Occasional /hpf; Bilirubin,Urine Negative (Negative); Blood,Urine Small (Negative); Color,Urine Light Yellow; Glucose,Urine (UA) Negative (Negative); Ketones,Urine Negative (Negative); Leukocyte Esterase,Urine Negative (Negative); Mucus,Urine Rare /hpf; Nitrite,Urine Negative (Negative); Protein,Urine Negative (Negative); RBC,Urine <1 /hpf (0-5); Specific Gravity,Urine 1.011 (1.001-1.035); Squamous Epithelial Cell,Urine 1 /hpf (0-4); Urobilinogen,Urine <2.0 mg/dL (<2.0); WBC,Urine <1 /hpf (0-5)
[2021-05-27 03:18] LABS: Amphetamine Screen,Urine Not Detected (NotDetected); Barbiturate Screen,Urine Not Detected (NotDetected); Benzodiazepines Screen,Urine Not Detected (NotDetected); Cocaine Screen,Urine Not Detected (NotDetected); Methadone Screen, Urine Not Detected (NotDetected); Opiate Screen,Urine Not Detected (NotDetected); Oxycodone Screen, Urine Not Detected (NotDetected); Phencyclidine Screen,Urine Not Detected (NotDetected); Tricyclic Antidepressant,Urine Not Detected (NotDetected); Urn Cannabinoid Scrn Not Detected (NotDetected)
[2021-05-27] MEDS ORDERED: ACETAMINOPHEN TAB 325 MG TAB PO PRN (03:51)
[2021-05-27] MEDS ORDERED: MAGNESIUM HYDROXIDE 2,400 MG/10 ML CUP PO PRN (03:51)
[2021-05-27] MEDS ORDERED: MAG HYDROX/AL HYDROX/SIMETH 30 ML CUP PO PRN (03:51)
[2021-05-27] MEDS ORDERED: ALPRAZolam 0.25 MG TAB PO PRN (03:53)
[2021-05-27] MEDS ORDERED: LORazepam 2 MG/ML INJ IM PRN (03:54)
[2021-05-27] MEDS ORDERED: HALOPERIDOL LACTATE 5 MG/ML 1 ML VIAL IM PRN (03:55)
[2021-05-27] MEDS ORDERED: haloperidoL 5 MG TAB PO PRN (03:55)
[2021-05-27] MEDS: BENZTROPINE MESYLATE 1 MG TAB PO SCH ×2 (08:26→21:01)
--- NOTE | 2021-05-27 11:32 | P.HP ---
Psychiatric H&P - . H&P Date: 05/27/21 History & Physical: Allergies Allergy/AdvReac Type Severity Reaction Status Date / Time No Known Allergies Allergy Verified 05/27/21 00:38 Vital Signs Temp 97.4 F L 05/27/21 04:43 Pulse 60 05/27/21 04:43 Resp 18 05/27/21 04:43 BP 139/78 05/27/21 04:43 Pulse Ox 98 05/27/21 04:43 Intake & Output 05/26/21 05/27/21 05/27/21 18:59 06:59 18:59 Weight 130.4 kg Laboratory Last Values Urine Color Light Yellow 05/27/21 02:33 Urine Appearance Clear (Clear) 05/27/21 02:33 Urine pH 5.0 (5.0-8.0) 05/27/21 02:33 Ur Specific Bertrand 1.011 (1.001-1.035) 05/27/21 02:33 Urine Protein Negative (Negative) 05/27/21 02:33 Urine Glucose (UA) Negative (Negative) 05/27/21 02:33 Urine Ketones Negative (Negative) 05/27/21 02:33 Urine Blood Small (Negative) H 05/27/21 02:33 Urine Nitrite Negative (Negative) 05/27/21 02:33 Urine Bilirubin Negative (Negative) 05/27/21 02:33 Urine Urobilinogen <2.0 mg/dL (<2.0) 05/27/21 02:33 Ur Leukocyte Esterase Negative (Negative) 05/27/21 02:33 Urine RBC <1 /hpf (0-5) 05/27/21 02:33 Urine WBC <1 /hpf (0-5) 05/27/21 02:33 Ur Squamous Epith Cells 1 /hpf (0-4) 05/27/21 02:33 Urine Bacteria Occasional /hpf (None) H 05/27/21 02:33 Urine Mucus Rare /hpf (None) H 05/27/21 02:33 Urine HCG, Qual Not Detected (Not Detectd) 05/27/21 02:33 Urine Opiates Screen Not Detected (NotDetected) 05/27/21 02:33 Ur Oxycodone Screen Not Detected (NotDetected) 05/27/21 02:33 Urine Methadone Screen Not Detected (NotDetected) 05/27/21 02:33 Ur Propoxyphene Screen Not Detected (NotDetected) 05/27/21 02:33 Ur Barbiturates Screen Not Detected (NotDetected) 05/27/21 02:33 U Tricyclic Antidepress Not Detected (NotDetected) 05/27/21 02:33 Ur Phencyclidine Scrn Not Detected (NotDetected) 05/27/21 02:33 Ur Amphetamines Screen Not Detected (NotDetected) 05/27/21 02:33 U Methamphetamines Scrn Not Detected (NotDetected) 05/27/21 02:33 U Benzodiazepines Scrn Not Detected (NotDetected) 05/27/21 02:33 Urine Cocaine Screen Not Detected (NotDetected) 05/27/21 02:33 U Marijuana (THC) Screen Not Detected (NotDetected) 05/27/21 02:33 Coronavirus (PCR) Not Detected (Not Detectd) 05/27/21 03:10 05/27/21 11:27 IDENTIFYING DATA: Patient is a 41-year-old female with a history of developmental delay and bipolar disorder currently lives in apartment complex alone has no kids and is single. HPI: Patient presented to the hospital yesterday complaining of suicidal thoughts at home and increase in her anxiety according to EPS assessment. Patient also was feeling that it was not safe to go home and was endorsing paranoia. Patient's UDS was negative. Patient was admitted voluntarily to the mental health unit for evaluation and treatment. Patient was seen laying in her bed today and agreeable to speak to policy writer. She states that she was feeling suicidal at home. She claims that she was in her living room when she turned on music that scared her. She states that she called the crisis line at that time. She claims that the physician office clin asst came to pick her up and take her to the hospital. She states that she has been taking her medications and currently sees the act team. She was fairly concrete and had a poverty of content. She describes an increase in stress level recently and increase in her depression and anxiety in the past few weeks. States that her sleep has been "on and off". She is endorsing mild paranoid today. She claims her appetite is fair. Patient denies any suicidal or homicidal ideations intent or plan. At this time patient denies any auditory or visual hallucinations. Patient denies any flight of ideas racing thoughts and increased in goal directed behavior. Patient admits to using no recreational drugs or cigarettes PAST PSYCHIATRIC HISTORY: Patient states that bipolar disorder and developmental delay. She was previously on paliperidone Klonopin and Lamictal. Patient's last psychiatric hospitalization was in 2018 on the mental health unit and has had several previous hospitalizations. She states that she currently follows up at [facility] with Dr. Conn. Patient denies any history of suicide attempts in the past. PMH:denies ALLERGIES: as per EMR CHEMICAL DEPENDENCY HISTORY: as per HPI FAMILY PSYCHIATRIC/SUBSTANCE USE HISTORY: She states that her brother has anxiety and her father has bipolar disorder. SOCIAL HISTORY: Patient was born and raised in [place] [facility]. She states that she did high school and completed some college. She currently lives alone in an apartment has no kids and is single. She denies any legal history. MENTAL STATUS EXAM: General Appearance: Patient appears to be tall, overweight, stated age is alert, directable, and attempts to cooperate. Patient appears to have poor hygiene and grooming. Behavior: Patient is seated without any agitated behavior. [place], cooperative. Speech: Patient's speech is fluent and nonpressured. Monotone Mood/Affect: Patient reports their mood is depressed and anxious, affect is congruent and constricted. Suicidality/Homicidality: Patient denies having any homicidal ideation intent or plan. Denies any suicidal ideations intent or plan Perceptions: Patient denies any visual hallucinations and denies any auditory hallucinations Though content/process: Poverty of content, vague. Logical. Endorsing mild paranoia. Memory and concentration: AOX3, grossly intact for the purposes of this session. Can spell "WORLD" backwards Judgment and insight: poor STRENGTHS/WEAKNESSES: strength is that patient is resilient. Weakness is that patient has poor judgment and is impulsive INTELLECT: Below average IMPRESSIONS: Bipolar disorder, current episode depressed Intellectual disability PLAN: -Patient is admitted under voluntary status to MHU for stabilization of psychiatric symptoms and safety. Patient has signed adult voluntary form and medication consent and is placed in patient's chart. -Medications : Will start patient on paliperidone 6 mg daily at bedtime for mood stabilization/insomnia. Melatonin 5 mg daily at bedtime for sleep. Zoloft 50 mg daily for anxiety/mood. -Ativan and Haldol PRN for agitation/aggression -Patient was informed of the risks, benefits and side effects of the medication and patient verbally consented to taking the medications. Patient signed med consent form and was placed in chart. -Internal Medicine consult to perform medical evaluation and physical. -NRT - not needed as patient does not smoke -SW on board for discharge planning. Encourage patient to participate in groups to work on coping skills. Patient is currently enrolled in the act team through [facility] and will be following up with them once she is discharged. 05/27/21 11:29
[2021-05-27] MEDS: SERTRALINE 50 MG TAB PO SCH (11:36)
[2021-05-27] MEDS ORDERED: PALIPERIDONE 3 MG TAB.ER.24 PO SCH (21:00)
[2021-05-27] MEDS: MELATONIN 5 MG TABLET PO SCH (21:01)
[2021-05-27] MEDS: PALIPERIDONE 6 MG TAB.ER.24 PO SCH (21:01)
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
[2021-05-28 07:28] LABS: Basophils % (A) 0 %; Eosinophils # (A) 0.2 k/uL (0-0.7); Eosinophils % (A) 2 %; HCT 43.9 % (34.0-46.0); HGB 14.2 gm/dL (11.4-16.0); Lymphocytes % (A) 24 %; MCH 28.5 pg (25.0-35.0); MCHC 32.4 g/dL (31.0-37.0); Mean Platelet Volume 7.7; Monocytes # (A) 0.4 k/uL (0-1.0); Monocytes % (A) 4 %; Neutrophils # (A) 5.8 k/uL (1.3-7.7); Neutrophils % (A) 68 %; Platelet Count 296 k/uL (150-450); RBC 4.99 m/uL (3.80-5.40); RDW 12.2 % (11.5-15.5); WBC 8.5 k/uL (3.8-10.6)
[2021-05-28] MEDS: PANTOPRAZOLE 40 MG TABLET PO SCH (08:03)
[2021-05-28] MEDS: SERTRALINE 50 MG TAB PO SCH (08:03)
[2021-05-28] MEDS: BENZTROPINE MESYLATE 1 MG TAB PO SCH (08:04)
[2021-05-28 08:26] LABS: ALT 20 U/L (4-34); AST 31 U/L (14-36); African American GFR (CKD) >90 (>60 ml/min/1.73 sqM); Albumin 3.9 g/dL (3.5-5.0); Alkaline Phosphatase 97 U/L (38-126); Anion Gap 9 mmol/L; Blood Urea Nitrogen 13 mg/dL (7-17); Calcium 9.6 mg/dL (8.4-10.2); Carbon Dioxide 24 mmol/L (22-30); Chloride 105 mmol/L (98-107); Glucose 92 mg/dL (74-99); Non-African American GFR(CKD) >90 (>60 ml/min/1.73 sqM); Potassium 4.2 mmol/L (3.5-5.1); Sodium 138 mmol/L (137-145); Total Bilirubin 0.6 mg/dL (0.2-1.3); Total Protein 7.5 g/dL (6.3-8.2)
[2021-05-28] MEDS ORDERED: PALIPERIDONE 6 MG TAB.ER.24 PO SCH (09:00)
--- NOTE | 2021-05-28 10:03 | P.PN ---
Progress Note - Text Progress Note Date: 05/28/21 Interval History: Patient was seen lying in her bed this morning and was directable and agreeable to speak with automatic typewriter inspector in the office. She appeared to be less anxious and less depressed today and had a brighter affect. She continues to state that the medications have been helping her. She claims that she was feeling anxious that yesterday and did not go to groups however will attend coated groups today. She claims that the voices have been gradually improving however she still hears them during the day. She states that there not as distressing as before. She was asking for different techniques to control her anxiety. She claims that she slept fairly last night. At this time patient denies any suicidal or homical ideations, intent or plan. Patient denies any visual hallucinations and denies any paranoia or delusions. Patient denies any side effects from the medications and has been compliant with meds. Mental Status Exam: General Appearance: Patient appears to be tall, overweight, stated age is alert, directable, and attempts to cooperate. Patient appears to have improving hygiene and grooming. Behavior: Patient is seated without any agitated behavior. [place], cooperative. Speech: Patient's speech is fluent and nonpressured. Monotone Mood/Affect: Patient reports their mood is depressed and anxious, improving mildly, affect is congruent and constricted. Suicidality/Homicidality: Patient denies having any homicidal ideation intent or plan. Denies any suicidal ideations intent or plan Perceptions: Patient denies any visual hallucinations and denies any auditory hallucinations Though content/process: Poverty of content, vague. Logical. Memory and concentration: AOX3, grossly intact for the purposes of this session. Judgment and insight: poor, improving mildly Assessment Bipolar disorder, current episode depressed Intellectual disability Plan: -Patient continues to meet criteria for inpatient psychiatric admission for symptom stabilization and safety. Patient has signed adult voluntary form and medication consent and was placed in patient's chart. -Medications: Continue with paliperidone by mouth 6 mg daily at bedtime for mood stabilization/insomnia. Melatonin 5 mg daily at bedtime for sleep. Increase Zoloft to 100 mg daily for mood/anxiety. -When necessary Ativan and Haldol for agitation/aggression. -NRT - not needed as patient does not smoke -SW on board for discharge planning. Encouraged the patient to participate in milieu. Patient is currently enrolled in the act team through [facility] and will be following up with them once she is discharged.
[2021-05-28 13:08] LABS: Chol/HDL Ratio 3.69 Ratio; VLDL Calculation 14.24 mg/dL (5.00-40.00)
[2021-05-28] MEDS: LORazepam 1 MG TAB PO PRN (15:27)
[2021-05-28] MEDS: BENZTROPINE MESYLATE 0.5 MG TAB PO SCH (20:10)
[2021-05-28] MEDS: MELATONIN 5 MG TABLET PO SCH (20:10)
[2021-05-28] MEDS: PALIPERIDONE 6 MG TAB.ER.24 PO SCH (20:10)
[2021-05-29 06:50] VITALS: BP 142/69; PULSE 84; RESP 16; TEMP 98.4
[2021-05-29] MEDS: BENZTROPINE MESYLATE 0.5 MG TAB PO SCH ×2 (08:28→20:11)
[2021-05-29] MEDS: SERTRALINE 100 MG TAB PO SCH (08:28)
[2021-05-29] MEDS: PANTOPRAZOLE 40 MG TABLET PO SCH (08:28)
[2021-05-29] MEDS: LORazepam 1 MG TAB PO PRN ×2 (08:40→22:14)
--- NOTE | 2021-05-29 10:16 | P.PN ---
Progress Note - Text Progress Note Date: 05/29/21 Interval History: Patient was seen wandering the hallways this morning and was directable and ag reeable to speak with functional tester typewriters in the office. She appeared to be less anxious A and states that she is doing better overall with regards to her anxiety and mood. She states that she is not feeling depressed. She claims that she did need to take an Ativan this morning due to the unit being "unsafe". She states that she has been going to groups and participating as best she can. That today she is not hearing any voices. She was asking for different techniques to control her anxiety. She claims that she slept fairly last night. At this time patient denies any suicidal or homical ideations, intent or plan. Patient denies any auditory or visual hallucinations and denies any paranoia or delusions. Patient denies any side effects from the medications and has been compliant with meds. Mental Status Exam: General Appearance: Patient appears to be tall, overweight, stated age is alert, directable, and attempts to cooperate. Patient appears to have improving hygiene and grooming. Behavior: Patient is seated without any agitated behavior. [place], cooperative. Speech: Patient's speech is fluent and nonpressured. Monotone Mood/Affect: Patient reports their mood is depressed and anxious, improving mildly, affect is congruent and constricted. Suicidality/Homicidality: Patient denies having any homicidal ideation intent or plan. Denies any suicidal ideations intent or plan Perceptions: Patient denies any visual hallucinations and denies any auditory hallucinations Though content/process: Poverty of content, more goal oriented. Memory and concentration: AOX3, grossly intact for the purposes of this session. Judgment and insight: Likely poor, improving mildly Assessment Bipolar disorder, current episode depressed Intellectual disability Plan: -Patient continues to meet criteria for inpatient psychiatric admission for symptom stabilization and safety. Patient has signed adult voluntary form and medication consent and was placed in patient's chart. -Medications: Continue with paliperidone by mouth 6 mg daily at bedtime for mood stabilization/insomnia. Melatonin 5 mg daily at bedtime for sleep. Zoloft 100 mg daily for mood/anxiety. -When necessary Ativan and Haldol for agitation/aggression. -NRT - not needed as patient does not smoke -SW on board for discharge planning. Encouraged the patient to participate in milieu. Patient is currently enrolled in the act team through [facility]. will likely aim for discharge tomorrow.
[2021-05-29] MEDS: MELATONIN 5 MG TABLET PO SCH (20:11)
[2021-05-29] MEDS: PALIPERIDONE 6 MG TAB.ER.24 PO SCH (20:11)
[2021-05-30] MEDS: PANTOPRAZOLE 40 MG TABLET PO SCH (08:00)
[2021-05-30] MEDS: BENZTROPINE MESYLATE 0.5 MG TAB PO SCH (08:00)
[2021-05-30] MEDS: SERTRALINE 100 MG TAB PO SCH (08:00)
--- NOTE | 2021-05-30 09:48 | P.DS ---
Providers Date of admission: 05/27/21 03:49 Expected date of discharge: 05/30/21 Attending physician: Stefan Crotez MD Consults: 05/27/21 03:51 Consult Physician Routine Consulting Provider: Bola Physician Consult Reason/Comments: h and p Do you want consulting provider notified?: Yes, Notify in am Primary care physician: Stated None - Discharge Diagnosis(es) (1) Bipolar disorder current episode depressed Current Visit: Yes Status: Acute Priority: High (2) Intellectual disability Current Visit: Yes Status: Acute Priority: Medium Hospital Course: Admission HPI: Admission note was completed by bond writer "Patient is a 41-year-old female with a history of developmental delay and bipolar disorder currently lives in apartment complex alone has no kids and is single. Patient presented to the hospital yesterday complaining of suicidal thoughts at home and increase in her anxiety according to EPS assessment. Patient also was feeling that it was not safe to go home and was endorsing paranoia. Patient's UDS was negative. Patient was admitted voluntarily to the mental health unit for evaluation and treatment. Patient was seen laying in her bed today and agreeable to speak to bond writer. She states that she was feeling suicidal at home. She claims that she was in her living room when she turned on music that scared her. She states that she called the crisis line at that time. She claims that the barber instructor came to pick her up and take her to the hospital. She states that she has been taking her medications and currently sees the act team. She was fairly concrete and had a poverty of content. She describes an increase in stress level recently and increase in her depression and anxiety in the past few weeks. States that her sleep has been "on and off". She is endorsing mild paranoid today. She claims her appetite is fair. Patient denies any suicidal or homicidal ideations intent or plan. At this time patient denies any auditory or visual hallucinations. Patient denies any flight of ideas racing thoughts and increased in goal directed behavior. Patient admits to using no recreational drugs or cigarettes" Hospital course: Upon admission to the unit patient was directable and agreeable to commence treatment and signed adult voluntary form . Patient got along well with other patients on the unit and followed unit protocol. Patient was compliant with the medications and denied any side effects throughout hospital course. Patient was started on paliperidone and titrated up to dose of 6 mg daily at bedtime for mood stabilization/insomnia/psychosis. Patient was also started on melatonin 5 mg daily at bedtime for sleep. She was also started on Zoloft 100 mg daily for mood/anxiety. Patient will also be prescribed a 3 day supply of Klonopin 1 mg daily when necessary for anxiety. Patient spoke of her stressors and engaged in therapy both group and individual. Patient was also seen by medical team for history and physical exam. Throughout the course of the hospitalization patient gradually improved with regards to mood, anxiety, psychosis/hallucinations, sleep and returned back to their baseline level of functioning. On the day of discharge patient denied any suicidal or homicidal ideations intent or plan denied any auditory or visual hallucinations. Patient endorsed wanting to live for her health and her future. The patient denied any access to guns or weapons. Patient denied any paranoia and did not endorse any delusions. Patient does not have a significant history of substance abuse however was co unseled on abstaining from all substances including alcohol and marijuana. Patient elected to do outpatient substance use treatment program through [facility]. Patient is currently being followed by the act team as [facility] and being seen at her house weekly. Patient was also counseled on the medications and need for regular compliance and was encouraged to follow-up with their outpatient appointment for mental health and also for primary care. Prior to discharge a family meeting will be arranged by social sciences professor to answer any questions and ensure safety upon discharge. Maths Tutor spoke with patient's father Mohamud over the phone on day of discharge at [phone] and answered several questions about patient's treatment and condition. Maths Tutor also answer questions about medications. Mental status exam: General Appearance: Patient appears to be tall, overweight, stated age is alert, pleasant, and cooperative. Patient is in no acute distress and has improved hygiene and grooming Behavior: Patient is calmly seated without any agitated behavior. Speech: Patient's speech is fluent and nonpressured. Monotone Mood/Affect: Patient reports their mood is "good", affect is congruent and euthymic. Suicidality/Homicidality: Patient denies having any suicidal or homicidal ideation intent or plan. Perceptions: Patient denies any auditory or visual hallucinations. Though content/process: There is no evidence of any delusional thought content and thought process is linear and goal-directed. more future oriented Memory and concentration: AOX3, grossly intact for the purposes of this session. Can spell "WORLD" backwards correctly. Judgment and insight: improved with guarded prognosis Impression: Bipolar disorder, current episode depressed Intellectual disability Plan: -Continue with discharge today as patient has improved and stabilized psychiatrically and is not currently an imminent threat to herself and/or others. -Continue medications: Paliperidone 6 mg daily at bedtime for mood st abilization/insomnia/psychosis, melatonin 5 mg daily at bedtime for sleep, Zoloft 100 mg daily for mood/anxiety, Klonopin 1 mg daily when necessary for anxiety and will be given a 3 day supply of this. -Patient was counseled on the need for medication compliance and appropriate follow-up at mental health and also primary care for medical issues. Patient verbalized understanding and agreed. -Social work to arrange for and conduct family meeting to ensure safety upon discharge and answer any questions/concerns. Social work also to arrange for patients follow up appointments with [facility] and ACT team for psychiatric care along with follow up with primary care provider. -Patient counseled on abstaining from recreational drugs and marijuana and alcohol. Was informed/educated on the adverse effects on their physical and mental health. Patient verbally agreed and understood. -Patient was instructed to return to the hospital or seek immediate medical care if their psychiatric or medical symptoms do worsen or reoccur. Allergies Allergy/AdvReac Type Severity Reaction Status Date / Time No Known Allergies Allergy Verified 05/27/21 00:38 Laboratory Results WBC 8.5 k/uL (3.8-10.6) 05/28/21 07:03 RBC 4.99 m/uL (3.80-5.40) 05/28/21 07:03 Hgb 14.2 gm/dL (11.4-16.0) 05/28/21 07:03 Hct 43.9 % (34.0-46.0) 05/28/21 07:03 MCV 88.0 fL (80.0-100.0) 05/28/21 07:03 MCH 28.5 pg (25.0-35.0) 05/28/21 07:03 MCHC 32.4 g/dL (31.0-37.0) 05/28/21 07:03 RDW 12.2 % (11.5-15.5) 05/28/21 07:03 Plt Count 296 k/uL (150-450) 05/28/21 07:03 MPV 7.7 05/28/21 07:03 Neutrophils % 68 % 05/28/21 07:03 Lymphocytes % 24 % 05/28/21 07:03 Monocytes % 4 % 05/28/21 07:03 Eosinophils % 2 % 05/28/21 07:03 Basophils % 0 % 05/28/21 07:03 Neutrophils # 5.8 k/uL (1.3-7.7) 05/28/21 07:03 Lymphocytes # 2.0 k/uL (1.0-4.8) 05/28/21 07:03 Monocytes # 0.4 k/uL (0-1.0) 05/28/21 07:03 Eosinophils # 0.2 k/uL (0-0.7) 05/28/21 07:03 Basophils # 0.0 k/uL (0-0.2) 05/28/21 07:03 Sodium 138 mmol/L (137-145) 05/28/21 07:03 Potassium 4.2 mmol/L (3.5-5.1) 05/28/21 07:03 Chloride 105 mmol/L (98-107) 05/28/21 07:03 Carbon Dioxide 24 mmol/L (22-30) 05/28/21 07:03 Anion Gap 9 mmol/L 05/28/21 07:03 BUN 13 mg/dL (7-17) 05/28/21 07:03 Creatinine 0.63 mg/dL (0.52-1.04) 05/28/21 07:03 Est GFR (CKD-EPI)AfAm >90 (>60 ml/min/1.73 sqM) 05/28/21 07:03 Est GFR (CKD-EPI)NonAf >90 (>60 ml/min/1.73 sqM) 05/28/21 07:03 Glucose 92 mg/dL (74-99) 05/28/21 07:[address] Glu mg/dL 97 05/28/21 07:03 Hemoglobin A1c 5.0 % (4.0-6.0) 05/28/21 07:03 Calcium 9.6 mg/dL (8.4-10.2) 05/28/21 07:03 Total Bilirubin 0.6 mg/dL (0.2-1.3) 05/28/21 07:03 AST 31 U/L (14-36) 05/28/21 07:03 ALT 20 U/L (4-34) 05/28/21 07:03 Alkaline Phosphatase 97 U/L (38-126) 05/28/21 07:03 Total Protein 7.5 g/dL (6.3-8.2) 05/28/21 07:03 Albumin 3.9 g/dL (3.5-5.0) 05/28/21 07:03 Triglycerides 71.20 mg/dL (0.00-149.00) 05/28/21 07:03 Cholesterol 243.00 mg/dL (0.00-200.00) H 05/28/21 07:03 LDL Cholesterol, Calc 163.0 mg/dL (0.0-131.0) H 05/28/21 07:03 VLDL Cholesterol, Calc 14.24 mg/dL (5.00-40.00) 05/28/21 07:03 HDL Cholesterol 65.80 mg/dL (40.00-60.00) H 05/28/21 07:03 Cholesterol/HDL Ratio 3.69 Ratio 05/28/21 07:03 TSH 3.770 mIU/L (0.465-4.680) 05/28/21 07:03 Urine Color Light Yellow 05/27/21 02:33 Urine Appearance Clear (Clear) 05/27/21 02:33 Urine pH 5.0 (5.0-8.0) 05/27/21 02:33 Ur Specific [place] 1.011 (1.001-1.035) 05/27/21 02:33 Urine Protein Negative (Negative) 05/27/21 02:33 Urine Glucose (UA) Negative (Negative) 05/27/21 02:33 Urine Ketones Negative (Negative) 05/27/21 02:33 Urine Blood Small (Negative) H 05/27/21 02:33 Urine Nitrite Negative (Negative) 05/27/21 02:33 Urine Bilirubin Negative (Negative) 05/27/21 02:33 Urine Urobilinogen <2.0 mg/dL (<2.0) 05/27/21 02:33 Ur Leukocyte Esterase Negative (Negative) 05/27/21 02:33 Urine RBC <1 /hpf (0-5) 05/27/21 02:33 Urine WBC <1 /hpf (0-5) 05/27/21 02:33 Ur Squamous Epith Cells 1 /hpf (0-4) 05/27/21 02:33 Urine Bacteria Occasional /hpf (None) H 05/27/21 02:33 Urine Mucus Rare /hpf (None) H 05/27/21 02:33 Urine HCG, Qual Not Detected (Not Detectd) 05/27/21 02:33 Urine Opiates Screen Not Detected (NotDetected) 05/27/21 02:33 Ur Oxycodone Screen Not Detected (NotDetected) 05/27/21 02:33 Urine Methadone Screen Not Detected (NotDetected) 05/27/21 02:33 Ur Propoxyphene Screen Not Detected (NotDetected) 05/27/21 02:33 Ur Barbiturates Screen Not Detected (NotDetected) 05/27/21 02:33 U Tricyclic Antidepress Not Detected (NotDetected) 05/27/21 02:33 Ur Phencyclidine Scrn Not Detected (NotDetected) 05/27/21 02:33 Ur Amphetamines Screen Not Detected (NotDetected) 05/27/21 02:33 U Methamphetamines Scrn Not Detected (NotDetected) 05/27/21 02:33 U Benzodiazepines Scrn Not Detected (NotDetected) 05/27/21 02:33 Urine Cocaine Screen Not Detected (NotDetected) 05/27/21 02:33 U Marijuana (THC) Screen Not Detected (NotDetected) 05/27/21 02:33 Coronavirus (PCR) Not Detected (Not Detectd) 05/27/21 03:10 Vital Signs Temp 98.4 F 05/29/21 06:48 Pulse 84 05/29/21 06:48 Resp 16 05/29/21 06:48 BP 142/69 05/29/21 06:48 Pulse Ox 98 05/27/21 04:43 Patient Condition at Discharge: Stable Plan - Discharge Summary Discharge Rx Participant: No New Discharge Prescriptions: New Benztropine Mesylate [Cogentin] 0.5 mg PO BID 30 Days tab Paliperidone [Invega] 6 mg PO HS 30 Days tablet Sertraline [Zoloft] 100 mg PO DAILY 30 Days tab Melatonin 5 mg PO HS 30 Days tablet Pantoprazole [Protonix] 40 mg PO AC-BRKFST 30 Days tab Acetaminophen Tab [Tylenol] 650 mg PO Q4HR PRN tab PRN Reason: Pain/Discomfort clonazePAM [KlonoPIN] 1 mg PO DAILY PRN 3 Days #6 tab PRN Reason: Anxiety Discontinued Paliperidone [Invega] 9 mg PO HS Benztropine Mesylate [Cogentin] 1 mg PO BID ALPRAZolam [Xanax] 0.25 mg PO HS PRN PRN Reason: Insomnia Discharge Medication List Acetaminophen Tab [Tylenol] 650 mg PO Q4HR PRN tab 05/30/21 [Rx] Benztropine Mesylate [Cogentin] 0.5 mg PO BID 30 Days tab 05/30/21 [Rx] Melatonin 5 mg PO HS 30 Days tablet 05/30/21 [Rx] Paliperidone [Invega] 6 mg PO HS 30 Days tablet 05/30/21 [Rx] Pantoprazole [Protonix] 40 mg PO AC-BRKFST 30 Days tab 05/30/21 [Rx] Sertraline [Zoloft] 100 mg PO DAILY 30 Days tab 05/30/21 [Rx] clonazePAM [KlonoPIN] 1 mg PO DAILY PRN 3 Days #6 tab 05/30/21 [Rx] Follow up Appointment(s)/Referral(s): None,Stated [Primary Care Provider] - 1 Week Activity/Diet/Wound Care/Special Instructions: Activity and diet as tolerated. Avoid the use of street drugs and alcohol. Take all medications as prescribed. When you are in need of refills on your medications please contact your medical provider and/or outpatient psychiatrist to have this done. Please go to scheduled outpatient appointment for aftercare treatment. If symptoms return or become worse, call the crisis line at and/or go to the nearest emergency room for evaluation. Discharge Disposition: HOME SELF-CARE
== END 2021-05-30 14:41 | disposition home or self-care (01) | DRG 885 ==
LOC: EC 00:01 → 3MHU 03:49
PROVIDERS: ADMIT Psychiatry & Neurology Psychiatry; ATTEND Psychiatry & Neurology Psychiatry
DX: F31.30 Bipolar disorder, current episode depressed, mild or moderate severity, unspecified (principal); R45.851 Suicidal ideations; F29 Unspecified psychosis not due to a substance or known physiological condition; F79 Unspecified intellectual disabilities; F41.9 Anxiety disorder, unspecified; G47.00 Insomnia, unspecified; Z20.822 Contact with and (suspected) exposure to COVID-19; Z79.899 Other long term (current) drug therapy; Z87.820 Personal history of traumatic brain injury
CPT/HCPCS: 80053; 80061; 80306; 81001; 81025; 83036; 84443; 85025; 87635

== ENCOUNTER 2021-07-26 02:18 | Observation (INO) | payer MEDICARE, OTHER ==
[2021-07-26] MEDS ORDERED: SODIUM CHLORIDE 0.9% 500 ML 500 ML IV STA (02:38)
[2021-07-26] MEDS ORDERED: MORPHINE SULFATE 4 MG/ML SYRINGE IV STA (02:38)
[2021-07-26] MEDS ORDERED: ONDANSETRON 4 MG/2 ML VIAL IVP STA (02:38)
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
[2021-07-26 02:57] LABS: Basophils % (A) 0 %; Eosinophils # (A) 0.3 k/uL (0-0.7); Eosinophils % (A) 3 %; HCT 38.5 % (34.0-46.0); HGB 12.9 gm/dL (11.4-16.0); Lymphocytes # (A) 2.2 k/uL (1.0-4.8); Lymphocytes % (A) 23 %; MCH 28.3 pg (25.0-35.0); MCHC 33.6 g/dL (31.0-37.0); MCV 84.3 fL (80.0-100.0); Monocytes # (A) 0.4 k/uL (0-1.0); Monocytes % (A) 5 %; Neutrophils # (A) 6.6 k/uL (1.3-7.7); Neutrophils % (A) 68 %; Platelet Count 277 k/uL (150-450); RBC 4.57 m/uL (3.80-5.40); WBC 9.6 k/uL (3.8-10.6)
[2021-07-26 03:07] LABS: Sodium 133 mmol/L (137-145)
[2021-07-26 03:10] LABS: ALT 27 U/L (4-34); AST 40 U/L (14-36); African American GFR (CKD) >90 (>60 ml/min/1.73 sqM); Albumin 3.7 g/dL (3.5-5.0); Alkaline Phosphatase 80 U/L (38-126); Amylase 68 U/L (30-110); Anion Gap 7 mmol/L; Blood Urea Nitrogen 15 mg/dL (7-17); Calcium 9.1 mg/dL (8.4-10.2); Carbon Dioxide 25 mmol/L (22-30); Chloride 101 mmol/L (98-107); Glucose 111 mg/dL (74-99); Lipase 127 U/L (23-300); Non-African American GFR(CKD) >90 (>60 ml/min/1.73 sqM); Potassium 4.3 mmol/L (3.5-5.1); Total Bilirubin 0.5 mg/dL (0.2-1.3); Total Protein 7.2 g/dL (6.3-8.2)
[2021-07-26 04:19] LABS: Appearance,Urine Cloudy (Clear); Bacteria,Urine Moderate /hpf; Bilirubin,Urine Negative (Negative); Blood,Urine Trace (Negative); Color,Urine Light Yellow; Glucose,Urine (UA) Negative (Negative); Ketones,Urine Negative (Negative); Leukocyte Esterase,Urine Negative (Negative); Mucus,Urine Rare /hpf; Nitrite,Urine Negative (Negative); PH, Urine 6.5 (5.0-8.0); Protein,Urine Negative (Negative); RBC,Urine 1 /hpf (0-5); Specific Gravity,Urine 1.011 (1.001-1.035); Squamous Epithelial Cell,Urine 3 /hpf (0-4); Urobilinogen,Urine <2.0 mg/dL (<2.0); WBC,Urine 3 /hpf (0-5)
--- NOTE | 2021-07-26 04:21 | CT ---
EXAMINATION TYPE: CT abdomen pelvis wo con DATE OF EXAM: 07/26/2021 COMPARISON: None HISTORY: Right side abdominal pain CT DLP: 1556.40 mGycm Automated exposure control for dose reduction was used. Images obtained from the diaphragm to the floor the pelvis with no contrast. The lung bases are clear. There is no pleural effusion. Heart size is normal. There is no pericardial effusion. Liver spleen stomach pancreas appear intact. The bile ducts are not dilated. There is 2 cm calcified gallstone. Gallbladder is large and measures 5 cm in diameter. Gallstone is at the gallbladder neck. There is no adrenal mass. Kidneys show normal size and contour. There is no hydronephrosis. Ureters a re not dilated. There is no evidence of renal mass. There is no retroperitoneal adenopathy. Appendix is inferior and appears normal. Bladder distends smoothly. Uterus is anteverted. There is no free fluid in the pelvis. Lumbar vertebr a have normal alignment. There is no compression fracture. Posterior elements are intact. Facet joint s are intact. The bony pelvis is intact. Hip joints are intact. There is 3 cm cyst on the right ovary . IMPRESSION: Normal appendix. 3 cm right ovarian cyst. There is large gallstone at the gallbladder neck. Gallbladder is mildly dilated and this could be cho lecystitis.
[2021-07-26] MEDS ORDERED: MORPHINE SULFATE 4 MG/ML SYRINGE IV PRN (04:42)
[2021-07-26] MEDS ORDERED: NALOXONE 0.4 MG/ML 1 ML VIAL IV PRN (04:42)
[2021-07-26] MEDS: SODIUM CHLORIDE 0.9% 1,000 ML IV SCH ×3 (04:52→15:06)
[2021-07-26] MEDS: PANTOPRAZOLE 40 MG/10 ML VIAL IV SCH (08:27)
[2021-07-26] MEDS: BENZTROPINE MESYLATE 0.5 MG TAB PO SCH ×2 (10:36→20:33)
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
[2021-07-26] MEDS ORDERED: IV FLUID CONTINUATION 1,000 ML IV ONE (12:25)
[2021-07-26] MEDS: ONDANSETRON 4 MG/2 ML VIAL IVP PRN ×2 (12:37→14:27)
[2021-07-26] MEDS ORDERED: DEXAMETHASONE SOD PHOSPHATE 4 MG/ML 1 ML VIAL IVP ONE (12:37)
[2021-07-26] MEDS ORDERED: HEPARIN SODIUM,PORCINE/PF 5,000 UNIT/0.5 ML SYRINGE SQ STA (13:01)
[2021-07-26] MEDS ORDERED: ceFAZolin 3 GM in SODIUM CHLORIDE 0.9% 100 ML IVPB ONE (13:02)
[2021-07-26] MEDS ORDERED: LIDOCAINE 1% INJ 10MG/ML (20 ML MDV) ONE (13:23)
[2021-07-26] MEDS ORDERED: fentaNYL (PF) 50 MCG/ML 2 ML AMP ONE (13:23)
[2021-07-26] MEDS ORDERED: SUCCINYLCHOLINE CHLORIDE 100 MG/5 ML SYR IV ONE (13:23)
[2021-07-26] MEDS ORDERED: ROCURONIUM 10 MG/ML (5 ML VIAL) IV ONE (13:23)
[2021-07-26] MEDS ORDERED: PROPOFOL 10 MG/ML 20 ML VIAL IV ONE (13:23)
[2021-07-26] MEDS ORDERED: BUPIVACAINE (PF) 0.25% 30 ML VIAL SQ ONE (13:41)
[2021-07-26] MEDS: HYDROmorphone 1 MG/ML 1 ML SYRINGE IVP ONE ×2 (14:23→14:30)
[2021-07-26] MEDS ORDERED: diphenhydrAMINE 50 MG/ML 1 ML VIAL IVP ONE (14:32)
[2021-07-26] MEDS: HYDROmorphone 0.5 MG/0.5 ML SYRINGE IVP PRN (19:05)
[2021-07-26] MEDS: PALIPERIDONE 6 MG TAB.ER.24 PO SCH (20:33)
[2021-07-27 02:26] VITALS: RESP 17
[2021-07-27] MEDS: SODIUM CHLORIDE 0.9% 1,000 ML IV SCH (03:51)
[2021-07-27] MEDS ORDERED: NON FORMULARY DRUG (Omeprazole [Omeprazole] 20 MG Capsule) PO SCH (09:00)
[2021-07-27] MEDS ORDERED: SERTRALINE 100 MG TAB PO SCH (09:00)
[2021-07-27] MEDS ORDERED: ALPRAZolam 0.5 MG TAB PO PRN (09:21)
[2021-07-27] MEDS ORDERED: clonazePAM 0.5 MG TAB PO STA (09:21)
[2021-07-27] MEDS: PALIPERIDONE 6 MG TAB.ER.24 PO SCH (09:28)
[2021-07-27] MEDS: BENZTROPINE MESYLATE 0.5 MG TAB PO SCH (09:28)
[2021-07-27] MEDS: PANTOPRAZOLE 40 MG/10 ML VIAL IV SCH (09:30)
[2021-07-27 10:27] VITALS: BMI 41.2
--- NOTE | 2021-07-27 12:44 | CONS ---
CONSULTATION CHIEF COMPLAINT: Abdominal pain. HISTORY OF PRESENT ILLNESS: This is another admission for this 41-year-old white female. She has been having some difficulty with epigastric pain for a week or two and finally came to the emergency room, where she was found to have a large gallstone and suspected cholecystitis. She has had no jaundice, fever, chills, etc. REVIEW OF SYSTEMS: Otherwise unremarkable and noncontributory. Past medical history, family history, and personal and social histories reveal that SHE CANNOT TAKE BENADRYL. Medications include paliperidone ER 9 mg once a day, benztropine 1 mg twice a day, Xanax 0.25 at bedtime and Motrin 200 mg q.i.d. p.r.n. She had a history of congestive heart failure as a child. She has had problems with depression and schizophrenia. This is well managed and she has not had any difficulty lately. Past medical history, family history, and personal and social histories are all otherwise unremarkable and noncontributory. She was adopted. Prior surgery includes a procedure on an ankle. She does not smoke and she does not drink. PHYSICAL EXAMINATION: Blood pressure is 125/76 with a pulse of 70, respirations of 10, and she is afebrile. In general she appeared to be in no acute distress. Skin color is normal. Skin is warm and dry. There is no jaundice. Lymph nodes are not enlarged. Head, ears, eyes, nose, mouth and throat were normal. Neck veins are not distended. The chest is clear. Cardiac exam is normal. The abdomen is slightly protuberant, soft, and she has slight tenderness over the epigastrium. There are no masses. Extremities are normal. Neurologically she is intact. She is admitted to the hospital with the diagnoses: 1. Cholelithiasis and cholecystitis. 2. Schizophrenia. PLAN: General Surgery is planning on taking her to the operating room for cholecystectomy. MMODL / IJN: [id number] /
[2021-07-27] MEDS: HYDROmorphone 0.5 MG/0.5 ML SYRINGE IVP PRN (13:40)
--- NOTE | 2021-07-27 14:20 | PN ---
PROGRESS NOTE DATE OF SERVICE: 07/27/2021 CHIEF COMPLAINT: Status post cholecystectomy. HISTORY OF PRESENT ILLNESS: This lady is doing well. She has had no fever, chills, significant abdominal pain, etc. She has had no vomiting or diarrhea. She has passed gas and she is eating some. PHYSICAL EXAMINATION: Her chest is clear. Cardiac exam is normal. Abdomen is soft, nontender. IMPRESSION: 1. Status post cholecystectomy. 2. Schizophrenia. PLAN: Home when approved by Surgery. MMODL / IJN: [id number] /
[2021-07-27 15:05] VITALS: BP 110/68; PULSE 55; TEMP 98.4
[2021-07-27] MEDS ORDERED: HYDROcodone/APAP 5-325MG 1 EACH TAB PO PRN (15:16)
--- NOTE | 2021-07-27 15:22 | P.DS ---
Providers Date of admission: 07/26/21 04:42 Expected date of discharge: 07/27/21 Attending physician: Efra Manning Consults: 07/26/21 14:05 Consult Physician Routine Consulting Provider: Juan J Romero Consult Reason/Comments: Medical management Do you want consulting provider notified?: Yes Primary care physician: Juan J Romero Hospital Course: Discharge diagnosis 1. Cholecystitis 2. Symptomatically cholelithiasis Hospital course This is a 41-year-old female who presents to the hospital with complaints of right upper quadrant and mid abdominal pain that started yesterday. Patient reports having nausea and vomiting yesterday. She states the pain is worse after eating. She had a computed tomography scan of the abdomen that showed a large stone in the gallbladder neck and mildly distended gallbladder. Patient is status post laparoscopic cholecystectomy. She tolerated surgery well. Her pain is controlled. She is tolerating diet. She is having flatus. She is up and ambulating. She's afebrile. She is stable for discharge. Please refer to chart for any further details. Physician Air Compressor Engineer note has been reviewed by physician. Signing provider agrees with the documented findings, assessment, and plan of care. Patient Condition at Discharge: Stable Plan - Discharge Summary Discharge Rx Participant: No New Discharge Prescriptions: New HYDROcodone/APAP 5-325MG [[place] 5-325] 1 tab PO Q6HR PRN 3 Days #12 tab PRN Reason: Pain Continue Benztropine Mesylate [Cogentin] 0.5 mg PO BID 30 Days tab Paliperidone [Invega] 6 mg PO HS 30 Days tablet Sertraline [Zoloft] 100 mg PO DAILY 30 Days tab Melatonin 5 mg PO HS 30 Days tablet Zinc 50 mg PO DAILY Cholecalciferol (Vitamin D3) [Vitamin D3 (125 MCG = 5,000 IU)] 250 mcg PO DAILY Omeprazole 20 mg PO DAILY Discharge Medication List Benztropine Mesylate [Cogentin] 0.5 mg PO BID 30 Days tab 05/30/21 [Rx] Melatonin 5 mg PO HS 30 Days tablet 05/30/21 [Rx] Paliperidone [Invega] 6 mg PO HS 30 Days tablet 05/30/21 [Rx] Sertraline [Zoloft] 100 mg PO DAILY 30 Days tab 05/30/21 [Rx] Cholecalciferol (Vitamin D3) [Vitamin D3 (125 MCG = 5,000 IU)] 250 mcg PO DAILY 07/26/21 [History] Omeprazole 20 mg PO DAILY 07/26/21 [History] Zinc 50 mg PO DAILY 07/26/21 [History] HYDROcodone/APAP 5-325MG [[place] 5-325] 1 tab PO Q6HR PRN 3 Days #12 tab 07/27/21 [Rx] Follow up Appointment(s)/Referral(s): Juan J Roemro MD [Primary Care Provider] - 1-2 days Efra Manning MD [STAFF PHYSICIAN] - 1 Week Activity/Diet/Wound Care/Special Instructions: No driving while taking [place] No lifting over 10 pounds You may shower. No soaking or tub baths for 2 weeks Very light activity until you are reevaluated at your follow up appointment with your surgeon Low-fat diet Discharge Disposition: HOME SELF-CARE
[2021-07-28] MEDS ORDERED: PANTOPRAZOLE 40 MG TABLET PO SCH (07:30)
--- NOTE | 2021-08-01 12:32 | P.OP ---
Date of Procedure: 07/26/21 Preoperative Diagnosis: Acute cholecystitis Postoperative Diagnosis: Acute cholecystitis Procedure(s) Performed: Laparoscopic cholecystectomy Anesthesia: KEAGAN Surgeon: Efra Manning Estimated Blood Loss (ml): 5 Pathology: other Condition: stable Disposition: PACU Description of Procedure: The patient was placed on the operating table. The patient received a general endotracheal tube anesthesia. The patients abdomen was prepped and draped in the usual sterile fashion. Through an infraumbilical stab incision, the fascia of the anterior abdominal wall was grasped with a pair of Kochers and then the Veress needle was placed in the peritoneal cavity. Position of the Veress needle was confirmed with positive drop test. The abdomen was then insufflated. After adequate insufflation, the 10 mm trocar was placed in the peritoneal cavity. Following this the laparoscope was placed in the peritoneal cavity. The patient was placed in the head-up, right side up position and then a 5 mm trocar was placed in the right lateral and right subcostal position under direct visualization. A 8 mm trocar was placed in the epigastric position. The gallbladder was grasped in the fundus and infundibulum. Traction on the gallbladder was placed in the lateral and the cephalad positions. The triangle of Calot was visualized.. The cystic duct was bluntly dissected until the union of the cystic duct and common bile duct was seen. A critical view of safety was achieved. The cystic duct was then divided and sealed with the Harmonic scissors. A PDS Endoloop was then placed throughout the cystic duct stump. The cystic artery divided and sealed with the Harmonic scissors. The gallbladder was then removed from the liver bed using Harmonic scissors. The gallbladder was then extracted through the epigastric port site. Operative field was checked for any bleeding spots and Harmonic scissors was used to coagulate the liver bed. The abdomen was irrigated. The trocars were removed. The skin was closed using interrupted 3-0 Vicryl suture. Dermabond dressing were applied. The patient tolerated the procedure well.
== END 2021-07-27 16:18 | disposition home or self-care (01) ==
LOC: EC 02:18 → 6NMEDSUR 04:42
PROVIDERS: ADMIT Surgery; ATTEND Surgery
DX: K80.12 Calculus of gallbladder with acute and chronic cholecystitis without obstruction (principal); F20.9 Schizophrenia, unspecified; K21.9 Gastro-esophageal reflux disease without esophagitis; N83.201 Unspecified ovarian cyst, right side; F41.9 Anxiety disorder, unspecified; F31.9 Bipolar disorder, unspecified; K59.00 Constipation, unspecified; F41.0 Panic disorder [episodic paroxysmal anxiety]; F06.8 Other specified mental disorders due to known physiological condition; Z20.822 Contact with and (suspected) exposure to COVID-19; Z79.899 Other long term (current) drug therapy; Z98.890 Other specified postprocedural states; Z87.828 Personal history of other (healed) physical injury and trauma; Z87.440 Personal history of urinary (tract) infections; Z87.81 Personal history of (healed) traumatic fracture; Z88.8 Allergy status to other drugs, medicaments and biological substances
CPT/HCPCS: 96361; 96374; 96375; 99285; 36415; 81025 ×2; 88304; 80053; 82150; 83690; 85025; 81001; 87635; 74176; 47562; G0378 ×2; J2270 ×2; J1200; J1100; J0690; J2405; J2001; J3010; J1170 ×3; J0330; J2704; C9113; J1644

== ENCOUNTER 2021-09-06 21:11 | Emergency (ER) | payer MEDICARE, OTHER ==
[2021-09-06 21:20] VITALS: BP 140/65; PULSE 88; RESP 18; TEMP 99
[2021-09-06] MEDS ORDERED: ONDANSETRON ODT 4 MG TAB PO STA (22:29)
[2021-09-06] MEDS ORDERED: ALBUTEROL HFA INHALER INHALATION STA (22:30)
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
[2021-09-06] MEDS: MAG HYDROX/AL HYDROX/SIMETH 30 ML CUP PO PRN (23:28)
--- NOTE | 2021-09-06 23:58 | XR ---
EXAM: XR Chest, 2 Views CLINICAL HISTORY: Dyspnea. TECHNIQUE: Frontal and lateral views of the chest. COMPARISON: No previous studies. FINDINGS: Lungs: No consolidative change. Pleural space: Unremarkable. No pneumothorax. Heart: Cardiomediastinal silhouette unremarkable. Mediastinum: See above. Bones/joints: The osseous structures are within normal limits. Mild degenerative disc disease of the thoracic spine. IMPRESSION: No active disease.
[2021-09-07] MEDS: MAG HYDROX/AL HYDROX/SIMETH 30 ML CUP PO PRN (01:17)
== END 2021-09-07 01:24 | disposition home or self-care (01) ==
LOC: EC 21:11
DX: J45.909 Unspecified asthma, uncomplicated (principal); K21.9 Gastro-esophageal reflux disease without esophagitis; F41.9 Anxiety disorder, unspecified; F31.9 Bipolar disorder, unspecified; F25.9 Schizoaffective disorder, unspecified; Z20.822 Contact with and (suspected) exposure to COVID-19; Z87.440 Personal history of urinary (tract) infections
CPT/HCPCS: 71046; 82075; 87635; 94640; 99285

== ENCOUNTER 2021-09-07 19:36 | Emergency (ER) | payer MEDICARE, OTHER ==
[2021-09-07 19:52] VITALS: TEMP 98.9
[2021-09-07] MEDS ORDERED: ONDANSETRON ODT 4 MG TAB PO STA (20:04)
[2021-09-07] MEDS ORDERED: MAG HYDROX/AL HYDROX/SIMETH 30 ML, HYOSCYAMINE ELIXIR 10 ML PO STA ×2 (20:06)
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
[2021-09-07 21:11] LABS: Basophils % (A) 0 %; Eosinophils # (A) 0.1 k/uL (0-0.7); Eosinophils % (A) 1 %; HGB 13.6 gm/dL (11.4-16.0); Lymphocytes # (A) 1.9 k/uL (1.0-4.8); Lymphocytes % (A) 24 %; MCH 28.3 pg (25.0-35.0); MCHC 33.3 g/dL (31.0-37.0); Monocytes # (A) 0.4 k/uL (0-1.0); Monocytes % (A) 4 %; Neutrophils # (A) 5.6 k/uL (1.3-7.7); Neutrophils % (A) 69 %; Platelet Count 299 k/uL (150-450); RBC 4.82 m/uL (3.80-5.40); RDW 12.4 % (11.5-15.5); WBC 8.2 k/uL (3.8-10.6)
[2021-09-07 22:15] LABS: ALT 91 U/L (4-34); African American GFR (CKD) >90 (>60 ml/min/1.73 sqM); Anion Gap 10 mmol/L; Blood Urea Nitrogen 17 mg/dL (7-17); Calcium 9.5 mg/dL (8.4-10.2); Carbon Dioxide 26 mmol/L (22-30); Chloride 98 mmol/L (98-107); Glucose 106 mg/dL (74-99); Non-African American GFR(CKD) >90 (>60 ml/min/1.73 sqM); Sodium 134 mmol/L (137-145); Total Bilirubin 0.9 mg/dL (0.2-1.3)
[2021-09-07 22:18] LABS: Potassium 4.4 mmol/L (3.5-5.1)
[2021-09-07 22:19] LABS: AST 85 U/L (14-36); Albumin 4.2 g/dL (3.5-5.0); Alkaline Phosphatase 104 U/L (38-126); Total Protein 8.1 g/dL (6.3-8.2)
[2021-09-07 22:49] VITALS: BP 137/75; PULSE 80; RESP 18
== END 2021-09-07 22:49 | disposition home or self-care (01) ==
LOC: EC 19:36
DX: R10.13 Epigastric pain (principal); K21.9 Gastro-esophageal reflux disease without esophagitis; F41.9 Anxiety disorder, unspecified; F31.9 Bipolar disorder, unspecified; F25.9 Schizoaffective disorder, unspecified; Z91.040 Latex allergy status; Z88.1 Allergy status to other antibiotic agents; Z87.442 Personal history of urinary calculi
CPT/HCPCS: 36415; 80053; 84484; 85025; 93005; 99285

== ENCOUNTER 2021-10-04 21:01 | Inpatient (IN) | payer MEDICARE, MEDICAID ==
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
[2021-10-05] MEDS ORDERED: clonazePAM 1 MG TAB PO PRN (01:47)
[2021-10-05] MEDS ORDERED: MAGNESIUM HYDROXIDE 2,400 MG/10 ML CUP PO PRN (01:48)
[2021-10-05] MEDS ORDERED: HALOPERIDOL LACTATE 5 MG/ML 1 ML VIAL IM PRN (01:48)
[2021-10-05] MEDS ORDERED: LORazepam 1 MG TAB PO PRN (01:48)
[2021-10-05] MEDS ORDERED: ACETAMINOPHEN TAB 325 MG TAB PO PRN (01:48)
[2021-10-05] MEDS ORDERED: haloperidoL 5 MG TAB PO PRN (01:53)
[2021-10-05] MEDS ORDERED: LORazepam 2 MG/ML INJ IM PRN (01:53)
[2021-10-05] MEDS ORDERED: lamoTRIgine 25 MG TAB PO SCH (09:00)
[2021-10-05] MEDS: DULoxetine HCL 30 MG CAPSULE.DR PO SCH (14:27)
--- NOTE | 2021-10-05 14:28 | P.HP ---
Psychiatric H&P - . H&P Date: 10/05/21 History & Physical: Allergies Allergy/AdvReac Type Severity Reaction Status Date / Time diphenhydramine Allergy Unknown Verified 10/04/21 21:51 [From Benadryl] latex Allergy Unknown Verified 10/04/21 21:51 Vital Signs Temp 97.6 F 10/05/21 04:18 Pulse 75 10/05/21 04:18 Resp 17 10/05/21 04:18 BP 141/65 10/05/21 04:18 Pulse Ox 96 10/05/21 04:18 Intake & Output 10/04/21 10/05/21 10/05/21 18:59 06:59 18:59 Weight 136.078 kg Laboratory Last Values Coronavirus (PCR) Not Detected (Not Detectd) 10/04/21 23:38 10/05/21 14:19 IDENTIFYING DATA: Patient is a 41-year-old female with a history of developmental delay and schizoaffective disorder currently lives in apartment complex alone has no kids and is single. HPI: Patient presented to the hospital yesterday complaining of anxiety, being off her medications and she apparently had "run out". She was previously following up at [facility] however has had her case closed as she was trying to change her psychiatrist. Patient was seen today participating in group and agreeable to speak to technical publications writer in the office. She was very concrete, spoke about running out of her medications and not knowing what to do. She states that she came in the hospital because she is feeling very anxious" in a panic". She has a history of multiple psychiatric hospitalizations. She claims that since being in the hospital it is helped her out and was fairly focused on obtaining Klonopin. She states that the Klonopin that usually helps her with anxiety. She claims that she needs a "adjustment of my medications" and states that she could not function at home without them. She gave fairly vague description of her overall symptoms and states that she was hearing voices. She states that the voices are now more "positive". She states that she stopped taking her medications about 2 weeks ago. She states that she is still having anxiety and very poor sleep. She was fairly concrete and had a poverty of content. She describes an increase in stress level recently and increase in her depression and anxiety in the past few weeks. She is not endorsing any paranoia today or any delusions. She claims her appetite is fair. Patient denies any suicidal or homicidal ideations intent or plan. At this time patient denies any auditory or visual hallucinations. Patient denies any flight of ideas racing thoughts and increased in goal directed behavior. Patient admits to using no recreational drugs or cigarettes PAST PSYCHIATRIC HISTORY: Patient states that schizoaffective and developmental delay. She was previously on paliperidone Klonopin, paliperidone, Zoloft and melatonin. Patient's last psychiatric hospitalization was in May 2021 mental health unit and has had several previous hospitalizations. She states that she currently follows up at [facility] however recently had her case closed. Patient denies any history of suicide attempts in the past. PMH:denies ALLERGIES: as per EMR CHEMICAL DEPENDENCY HISTORY: as per HPI FAMILY PSYCHIATRIC/SUBSTANCE USE HISTORY: She states that her brother has anxiety and her father has bipolar disorder. SOCIAL HISTORY: Patient was born and raised in [place]. She states that she did high school and completed some college. She currently lives alone in an apartment has no kids and is single. She denies any legal history. MENTAL STATUS EXAM: General Appearance: Patient appears to be tall, overweight, stated age is alert, directable, and attempts to cooperate. Patient appears to have poor hygiene and grooming. Behavior: Patient is seated without any agitated behavior. [place], comes to be cooperative. Speech: Patient's speech is fluent and nonpressured. Monotone Mood/Affect: Patient reports their mood is anxious and depressed, affect is congruent and constricted. Suicidality/Homicidality: Patient denies having any homicidal ideation intent or plan. Denies any suicidal ideations intent or plan Perceptions: Patient denies any visual hallucinations and denies any auditory hallucinations Though content/process: Poverty of content, vague. Logical. Memory and concentration: AOX3, grossly intact for the purposes of this session. Can spell "WORLD" backwards Judgment and insight: poor STRENGTHS/WEAKNESSES: strength is that patient is resilient. Weakness is that patient has poor judgment and is impulsive INTELLECT: Below average IMPRESSIONS: schizoaffective disorder, bipolar type Intellectual disability PLAN: -Patient is admitted under voluntary status to [facility] for stabilization of psychiatric symptoms and safety. Patient has signed adult voluntary form and medication consent and is placed in patient's chart. -Medications : Will start patient on paliperidone 6 mg daily at bedtime for mood stabilization/insomnia. start Melatonin 5 mg daily at bedtime for sleep. start cymbalta 30 mg daily for mood/anxiety. restarted klonopin 1 mg bid prn for anxiety -Ativan and Haldol PRN for agitation/aggression -Patient was informed of the risks, benefits and side effects of the medication and patient verbally consented to taking the medications. Patient signed med consent form and was placed in chart. -Internal Medicine consult to perform medical evaluation and physical. -NRT - not needed as patient does not smoke -SW on board for discharge planning. Encourage patient to participate in groups to work on coping skills. Patient is currently enrolled in the act team through [facility] and will be following up with them once she is discharged. 10/05/21 14:22
[2021-10-05] MEDS ORDERED: PALIPERIDONE 3 MG TAB.ER.24 PO SCH (21:00)
[2021-10-05] MEDS ORDERED: LORazepam 2 MG/ML INJ IM STA (21:05)
[2021-10-05] MEDS: MELATONIN 5 MG TABLET PO SCH (21:23)
[2021-10-05] MEDS: PALIPERIDONE 6 MG TAB.ER.24 PO SCH (21:23)
[2021-10-06 08:02] LABS: Basophils % (A) 0 %; Eosinophils # (A) 0.1 k/uL (0-0.7); Eosinophils % (A) 2 %; HCT 42.7 % (34.0-46.0); HGB 13.8 gm/dL (11.4-16.0); Lymphocytes # (A) 1.8 k/uL (1.0-4.8); Lymphocytes % (A) 24 %; MCH 27.8 pg (25.0-35.0); MCHC 32.3 g/dL (31.0-37.0); MCV 86.1 fL (80.0-100.0); Mean Platelet Volume 7.1; Monocytes # (A) 0.4 k/uL (0-1.0); Monocytes % (A) 6 %; Neutrophils # (A) 4.8 k/uL (1.3-7.7); Neutrophils % (A) 66 %; Platelet Count 313 k/uL (150-450); RBC 4.96 m/uL (3.80-5.40); RDW 12.4 % (11.5-15.5); WBC 7.2 k/uL (3.8-10.6)
[2021-10-06 08:13] LABS: ALT 24 U/L (4-34); AST 38 U/L (14-36); African American GFR (CKD) >90 (>60 ml/min/1.73 sqM); Albumin 4.1 g/dL (3.5-5.0); Alkaline Phosphatase 101 U/L (38-126); Anion Gap 4 mmol/L; Blood Urea Nitrogen 8 mg/dL (7-17); Calcium 9.4 mg/dL (8.4-10.2); Carbon Dioxide 29 mmol/L (22-30); Chloride 104 mmol/L (98-107); Glucose 97 mg/dL (74-99); Non-African American GFR(CKD) >90 (>60 ml/min/1.73 sqM); Potassium 4.5 mmol/L (3.5-5.1); Sodium 137 mmol/L (137-145); Total Bilirubin 0.6 mg/dL (0.2-1.3); Total Protein 7.8 g/dL (6.3-8.2)
[2021-10-06] MEDS: DULoxetine HCL 30 MG CAPSULE.DR PO SCH (08:58)
--- NOTE | 2021-10-06 12:09 | P.PN ---
Progress Note - Text Progress Note Date: 10/06/21 Interval History: Patient was seen today lying in her bed and refused to get out of bed as she was feeling tired but she was able to speak to loan underwriter briefly. Patient claims that she was very irritable last night and received haldol and ativan prn IM for agitation. She claims that she does not remember why she was so upset however claims that she feels less irritable today. She states that she feels the medications have been working a bit more today. She appeared to be more directable however continues to be fairly concrete and has minimal insight. She claims she slept throughout the night and still feels tired this morning. She missed breakfast this morning. She claims that she will try to get lunch today and try to go to groups later on. She claims that she still feels irritable at times however is denying any anxiety today. At this time patient denies any suicidal or homical ideations, intent or plan. Patient denies any visual hallucinations and denies any paranoia or delusions. She claims that she still hears voices however they have been improving. Patient denies any side effects from the medications and has been compliant with meds. Mental Status Exam: General Appearance: Patient appears to be tall, overweight, stated age is alert, directable, and attempts to cooperate. Patient appears to have poor hygiene and grooming. Behavior: Patient is seated without any agitated behavior. [place], appears to be lethargic and lying in bed. Speech: Patient's speech is fluent and nonpressured. Monotone Mood/Affect: Patient reports their mood is improving mildly, affect is congruent and constricted. Suicidality/Homicidality: Patient denies having any homicidal ideation intent or plan. Denies any suicidal ideations intent or plan Perceptions: Patient denies any visual hallucinations and denies any auditory hallucinations Though content/process: Poverty of content, vague. Logical. Memory and concentration: AOX3, grossly intact for the purposes of this session. Judgment and insight: poor, improving mildly IMPRESSIONS: schizoaffective disorder, bipolar type Intellectual disability PLAN: -Patient continues to meet criteria for inpatient psychiatric admission for symptom stabilization and safety. Patient has not signed adult voluntary form and medication consent and was placed in patient's chart. -Medications: paliperidone 6 mg daily at bedtime for mood stabilization/insomnia. will attempt to speak with patient about transitioning onto [facility] to discharge. Melatonin 5 mg daily at bedtime for sleep. cymbalta 30 mg daily for mood/anxiety. klonopin 1 mg bid prn for anxiety -When necessary Ativan and Haldol for agitation/aggression. -NRT - nicotine patch -SW on board for discharge planning. Encouraged the patient to participate in milieu. likely discharge in 1-2 days once patient is psychiatrically stabilized.
[2021-10-06] MEDS: clonazePAM 1 MG TAB PO PRN (18:29)
--- NOTE | 2021-10-06 19:09 | CONS ---
CONSULTATION CHIEF COMPLAINT: Acute psychosis. HISTORY OF PRESENT ILLNESS: This is another admission for this 41-year-old female who has a long-standing history of psychiatric problems. When asked what happened and why she is here, she responds only that she was not doing well. When she was asked if she had stopped her medications, she said that she had. REVIEW OF SYSTEMS: She denies any headaches, chest pain, shortness of breath, abdominal pain, nausea, vomiting, urinary complaints, etc. Past medical history, family history, and personal and social histories are all otherwise unremarkable and noncontributory. She has been on done ER 9 mg once a night, benztropine 1 mg twice a day, Xanax 0.25 at bedtime. She is ALLERGIC TO BENADRYL. The remainder of her history is unremarkable. PHYSICAL EXAMINATION: Blood pressure is 125/85 with a pulse of 70, respirations of 15. She is afebrile. In general she appeared to be overweight and in no acute distress. Skin color is normal. Skin is warm and dry. Lymph nodes are not enlarged. Head, ears, eyes, nose, mouth and throat were normal. Neck veins are not distended. Thyroid is not enlarged. Chest is clear. Cardiac exam is normal. Abdomen is protuberant, soft and nontender without masses or visceromegaly. Extremities are normal. Neurologically she is intact. IMPRESSION: Acute psychosis with history of schizophrenia. RECOMMENDATIONS: None at this time. Thank you respectfully. Juan J Romero II, M.D. ALVERTO / MYESHA: [id number] /
[2021-10-06] MEDS: PALIPERIDONE 6 MG TAB.ER.24 PO SCH (20:01)
[2021-10-06] MEDS: MELATONIN 5 MG TABLET PO SCH (20:01)
[2021-10-06 21:32] LABS: Chol/HDL Ratio 4.16 Ratio; LDL Cholesterol,Calculated 187.8 mg/dL (0.0-131.0)
[2021-10-06] MEDS: hydrOXYzine pamoate 25 MG CAP PO PRN (22:34)
[2021-10-07] MEDS: clonazePAM 1 MG TAB PO PRN ×2 (08:38→20:55)
[2021-10-07] MEDS: DULoxetine HCL 30 MG CAPSULE.DR PO SCH (08:38)
--- NOTE | 2021-10-07 10:39 | P.PN ---
Progress Note - Text Progress Note Date: 10/07/21 Interval History: Patient was seen today laying in her bed and was awoken by contract technical writer and agreeable speech in the office. She continues to be concrete and have poor eye contact. She states that she is doing a bit better today. She received Haldol prn dose last night and when asked about it she states that "I was feeling very agitated and angry and couldn't sleep". Patient continues to have minimal insight into her condition and need for treatment. She was offered long-acting injection of Invega Sustenna however patient states that "I'm tired of being poked and don't want see [facility] anymore". She claims that she was able to sleep after receiving the medication last night. She states that she feels a bit tired this morning. She claims that she has a fair appetite. She has not showered yet on the unit. She claims that she has gone to some groups. She claims that she still feels ir ritable at times however is denying any anxiety today. At this time patient denies any suicidal or homical ideations, intent or plan. Patient denies any visual hallucinations and denies any paranoia or delusions. She claims that she still hears voices however they have been improving. Patient denies any side effects from the medications and has been compliant with meds. Mental Status Exam: General Appearance: Patient appears to be tall, overweight, stated age is alert, directable, and attempts to cooperate. Patient appears to have poor hygiene and grooming. Poor eye contact. Behavior: Patient is seated without any agitated behavior. Licking. More awake today. Speech: Patient's speech is fluent and nonpressured. Monotone Mood/Affect: Patient reports their mood is improving mildly, affect is congruent and constricted. Suicidality/Homicidality: Patient denies having any homicidal ideation intent or plan. Denies any suicidal ideations intent or plan Perceptions: Patient denies any visual hallucinations and denies any auditory hallucinations Though content/process: Poverty of content, vague. Logical. Memory and concentration: AOX3, grossly intact for the purposes of this session. Judgment and insight: chronically poor, improving mildly IMPRESSIONS: schizoaffective disorder, bipolar type Intellectual disability PLAN: -Patient continues to meet criteria for inpatient psychiatric admission for symptom stabilization and safety. Patient has signed adult voluntary form and medication consent and was placed in patient's chart. -Medications: Increased paliperidone 9 mg daily at bedtime for mood stabilization/insomnia. Patient is refusing long-acting injection. Increased Melatonin 10 mg daily at bedtime for sleep. Increased Cymbalta 60 mg daily for mood/anxiety. klonopin 1 mg bid prn for anxiety -When necessary Ativan and Haldol for agitation/aggression. -NRT - nicotine patch -SW on board for discharge planning. Encouraged the patient to participate in milieu. likely discharge on sunday if patient is psychiatrically improved over the weekend. patient is refusing STERN.
[2021-10-07] MEDS: hydrOXYzine pamoate 25 MG CAP PO PRN ×2 (15:33→21:59)
[2021-10-07] MEDS: PALIPERIDONE 3 MG TAB.ER.24 PO SCH (20:54)
[2021-10-07] MEDS: MELATONIN 5 MG TABLET PO SCH (20:54)
[2021-10-08] MEDS: DULoxetine HCL 60 MG CAPSULE.DR PO SCH (08:13)
[2021-10-08] MEDS: clonazePAM 1 MG TAB PO PRN (09:16)
--- NOTE | 2021-10-08 13:49 | P.PN ---
Progress Note - Text Progress Note Date: 10/08/21 Interval History: Patient was seen in my office with door open and was directable and agreeable to speak with medical technical writer in the office. She stated she was admitted to Hospital 3 or 4 days ago and she is taking her medications. She stated things are working out smoothly with her medication.. At this time patient denies any suicidal or homical ideations, intent or plan. Patient denies any auditory, visual hallucinations and denies any paranoia or delusions. Patient denies any side effects from the medications and has been compliant with meds. Mental Status Exam: General Appearance: Patient appears to be stated age is alert, directable, and cooperative. Behavior: Patient is calmly seated without any agitated behavior. Speech: Patient's speech is fluent and nonpressured. Mood/Affect: Mood is improving mildly, affect is congruent and constricted. Suicidality/Homicidality: Patient denies having any suicidal or homicidal ideation intent or plan. Perceptions: Patient denies any visual hallucinations and denies any auditory hallucinations Though content/process: There is no evidence of any delusional thought content and thought process is linear and goal-directed. Memory and concentration: AOX3, grossly intact for the purposes of this session Judgment and insight: Improving mildly Assessment Patient continues to show residual symptoms of psychosis necessitating continued hospitalization Plan: -Patient continues to meet criteria for inpatient psychiatric admission for symptom stabilization and safety. -Medications: Continue medications as before. -When necessary Ativan and Haldol for agitation/aggression. -SW on board for discharge planning. Encouraged the patient to participate in milieu.
[2021-10-08] MEDS: MAG HYDROX/AL HYDROX/SIMETH 30 ML CUP PO PRN (18:27)
[2021-10-08] MEDS: MELATONIN 5 MG TABLET PO SCH (20:18)
[2021-10-08] MEDS: PALIPERIDONE 3 MG TAB.ER.24 PO SCH (20:18)
[2021-10-09] MEDS: DULoxetine HCL 60 MG CAPSULE.DR PO SCH (08:23)
[2021-10-09] MEDS: clonazePAM 1 MG TAB PO PRN (08:25)
[2021-10-09] MEDS: MAG HYDROX/AL HYDROX/SIMETH 30 ML CUP PO PRN (09:23)
--- NOTE | 2021-10-09 11:42 | P.PN ---
Progress Note - Text Progress Note Date: 10/09/21 Interval History: Patient was seen in her room and was directable and agreeable to speak with speech writer . Patient was laying in her bed and told me that she has nothing that she needs to talk to me about. She stated she is taking her medications as prescribed.. At this time patient denies any suicidal or homical ideations, intent or plan. Patient denies any auditory, visual hallucinations and denies any paranoia or delusions. Patient denies any side effects from the medications and has been compliant with meds. Mental Status Exam: General Appearance: Patient appears to be stated age is alert, directable, and cooperative. Behavior: Patient is calmly seated without any agitated behavior. Speech: Patient's speech is fluent and nonpressured. Mood/Affect: Mood is improving mildly, affect is congruent and constricted. Suicidality/Homicidality: Patient denies having any suicidal or homicidal ideation intent or plan. Perceptions: Patient denies any visual hallucinations and denies any auditory hallucinations Though content/process: There is no evidence of any delusional thought content and thought process is linear and goal-directed. Memory and concentration: AOX3, grossly intact for the purposes of this session Judgment and insight: Improving mildly Assessment Patient continues to show symptoms of psychosis necessitating ongoing hospitalization. Plan: -Patient continues to meet criteria for inpatient psychiatric admission for symptom stabilization and safety. -Medications: Continue medication as before. -When necessary Ativan and Haldol for agitation/aggression. -SW on board for discharge planning. Encouraged the patient to participate in milieu.
[2021-10-09] MEDS: MELATONIN 5 MG TABLET PO SCH (20:11)
[2021-10-09] MEDS: PALIPERIDONE 3 MG TAB.ER.24 PO SCH (20:11)
[2021-10-10] MEDS: DULoxetine HCL 60 MG CAPSULE.DR PO SCH (09:00)
[2021-10-10 09:03] VITALS: BP 157/72; PULSE 92; RESP 18; TEMP 97.1
[2021-10-10] MEDS ORDERED: PANTOPRAZOLE 40 MG TABLET PO SCH (10:15)
--- NOTE | 2021-10-10 10:27 | P.DS ---
Providers Date of admission: 10/05/21 01:46 Expected date of discharge: 10/10/21 Attending physician: Stefan Cortez MD Consults: 10/05/21 01:48 Consult Physician Routine Consulting Provider: Juan J Romero Consult Reason/Comments: H&P and medical Do you want consulting provider notified?: Yes Primary care physician: Juan J Romero - Discharge Diagnosis(es) (1) Schizoaffective disorder, bipolar type Current Visit: Yes Status: Acute Priority: High (2) Intellectual disability Current Visit: Yes Status: Acute Priority: Low Hospital Course: Admission HPI: Admission note was completed by real estate underwriter "Patient is a 41-year-old female with a history of developmental delay and schizoaffective disorder currently lives in apartment complex alone has no kids and is single. Patient presented to the hospital yesterday complaining of anxiety, being off her medications and she apparently had "run out". She was previously following up at [facility] however has had her case closed as she was trying to change her psychiatrist. Patient was seen today participating in group and agreeable to speak to real estate underwriter in the office. She was very concrete, spoke about running out of her medications and not knowing what to do. She states that she came in the hospital because she is feeling very anxious" in a panic". She has a history of multiple psychiatric hospitalizations. She claims that since being in the hospital it is helped her out and was fairly focused on obtaining Klonopin. She states that the Klonopin that usually helps her with anxiety. She claims that s he needs a "adjustment of my medications" and states that she could not function at home without them. She gave fairly vague description of her overall symptoms and states that she was hearing voices. She states that the voices are now more "positive". She states that she stopped taking her medications about 2 weeks ago. She states that she is still having anxiety and very poor sleep. She was fairly concrete and had a poverty of content. She describes an increase in stress level recently and increase in her depression and anxiety in the past few weeks. She is not endorsing any paranoia today or any delusions. She claims her appetite is fair. Patient denies any suicidal or homicidal ideations intent or plan. At this time patient denies any auditory or visual hallucinations. Patient denies any flight of ideas racing thoughts and increased in goal directed behavior. Patient admits to using no recreational drugs or cigarettes" Hospital course: Upon admission to the unit patient was directable and agreeable to commence treatment and signed adult voluntary form. Patient got along well with other patients on the unit and followed unit protocol. Patient was compliant with the medications and denied any side effects throughout hospital course. Patient was started on paliperidone by mouth titrated up to a dose of 9 mg daily at bedtime for mood stabilization/insomnia, patient was offered to be transferred onto long-acting injection however she refused. Patient was also started on melatonin 10 mg daily at bedtime for sleep, Cymbalta was increased to a dose of 60 mg daily for mood/anxiety. Patient was also restarted back on Klonopin 1 mg twice a day for anxiety when necessary.. Patient spoke of her stressors and engaged in therapy both group and individual. Patient was also seen by medical team for history and physical exam. Throughout the course of the hospitalization patient gradually improved with regards to mood, anxiety, psychosis, sleep and returned back to their baseline level of functioning. On the day of discharge patient denied any suicidal or homicidal ideations intent or plan denied any auditory or visual hallucinations. Patient endorsed wanting to live for her health and her future. The patient denied any access to guns or weapons. Patient denied any paranoia and did not endorse any delusions. Patient does not have a significant history of substance abuse however was counseled on abstaining from all substances including alcohol and marijuana. Patient was also counseled on the medications and need for regular compliance and was encouraged to follow-up with their outpatient appointment for mental health and also for primary care. Prior to discharge a family meeting will be arranged by group social worker to answer any questions and ensure safety upon discharge. Patient will continue following up with her psychiatrist Dr. Cruz Mental status exam: General Appearance: Patient appears to be overweight, tall, stated age is alert, pleasant, and cooperative. Patient is in no acute distress and has improved hygiene and grooming Behavior: Patient is calmly seated without any agitated behavior. Speech: Patient's speech is fluent and nonpressured. Mood/Affect: Patient reports their mood is "better", affect is congruent and euthymic. Suicidality/Homicidality: Patient denies having any suicidal or homicidal ideation intent or plan. Perceptions: Patient denies any auditory or visual hallucinations. Though content/process: There is no evidence of any delusional thought content and thought process is linear and goal-directed. more future oriented Memory and concentration: AOX3, grossly intact for the purposes of this session. Can spell "WORLD" backwards correctly. Judgment and insight: improved with guarded prognosis Impression: Schizoaffective disorder, bipolar type Intellectual disability Plan: -Continue with discharge today as patient has improved and stabilized psychiatrically and is not currently an imminent threat to herself and/or others. Patient will remain at chronically elevated risk for harm to self and/or others due to her impulsivity and chronic mental illness. -Continue medications: Paliperidone by mouth 9 mg daily at bedtime for mood stabilization/psychosis, melatonin 10 mg daily at bedtime for sleep, Cymbalta 60 mg daily for mood/anxiety, Klonopin 1 mg twice a day when necessary for anxiety. She will be only given 14 day supply of Klonopin, MAPS was checked. -Patient was counseled on the need for medication compliance and appropriate follow-up at mental health and also primary care for medical issues. Patient verbalized understanding and agreed. -Social work to arrange for and conduct family meeting to ensure safety upon discharge and answer any questions/concerns. Social work also to arrange for patients follow up appointments for psychiatric care along with follow up with primary care provider. -Patient counseled on abstaining from recreational drugs and marijuana and alcohol. Was informed/educated on the adverse effects on their physical and mental health. Patient verbally agreed and understood. -Patient was instructed to return to the hospital or seek immediate medical care if their psychiatric or medical symptoms do worsen or reoccur. Allergies Allergy/AdvReac Type Severity Reaction Status Date / Time diphenhydramine Allergy Unknown Verified 10/08/21 21:03 [From Benadryl] latex Allergy Unknown Verified 10/08/21 21:03 Laboratory Results WBC 7.2 k/uL (3.8-10.6) 10/06/21 07:10 RBC 4.96 m/uL (3.80-5.40) 10/06/21 07:10 Hgb 13.8 gm/dL (11.4-16.0) 10/06/21 07:10 Hct 42.7 % (34.0-46.0) 10/06/21 07:10 MCV 86.1 fL (80.0-100.0) 10/06/21 07:10 MCH 27.8 pg (25.0-35.0) 10/06/21 07:10 MCHC 32.3 g/dL (31.0-37.0) 10/06/21 07:10 RDW 12.4 % (11.5-15.5) 10/06/21 07:10 Plt Count 313 k/uL (150-450) 10/06/21 07:10 MPV 7.1 10/06/21 07:10 Neutrophils % 66 % 10/06/21 07:10 Lymphocytes % 24 % 10/06/21 07:10 Monocytes % 6 % 10/06/21 07:10 Eosinophils % 2 % 10/06/21 07:10 Basophils % 0 % 10/06/21 07:10 Neutrophils # 4.8 k/uL (1.3-7.7) 10/06/21 07:10 Lymphocytes # 1.8 k/uL (1.0-4.8) 10/06/21 07:10 Monocytes # 0.4 k/uL (0-1.0) 10/06/21 07:10 Eosinophils # 0.1 k/uL (0-0.7) 10/06/21 07:10 Basophils # 0.0 k/uL (0-0.2) 10/06/21 07:10 Sodium 137 mmol/L (137-145) 10/06/21 07:10 Potassium 4.5 mmol/L (3.5-5.1) 10/06/21 07:10 Chloride 104 mmol/L (98-107) 10/06/21 07:10 Carbon Dioxide 29 mmol/L (22-30) 10/06/21 07:10 Anion Gap 4 mmol/L 10/06/21 07:10 BUN 8 mg/dL (7-17) 10/06/21 07:10 Creatinine 0.68 mg/dL (0.52-1.04) 10/06/21 07:10 Est GFR (CKD-EPI)AfAm >90 (>60 ml/min/1.73 sqM) 10/06/21 07:10 Est GFR (CKD-EPI)NonAf >90 (>60 ml/min/1.73 sqM) 10/06/21 07:10 Glucose 97 mg/dL (74-99) 10/06/21 07:[address] Glu mg/dL 115 10/06/21 07:10 Hemoglobin A1c 5.6 % (0.0-6.0) 10/06/21 07:10 Calcium 9.4 mg/dL (8.4-10.2) 10/06/21 07:10 Total Bilirubin 0.6 mg/dL (0.2-1.3) 10/06/21 07:10 AST 38 U/L (14-36) H 10/06/21 07:10 ALT 24 U/L (4-34) 10/06/21 07:10 Alkaline Phosphatase 101 U/L (38-126) 10/06/21 07:10 Total Protein 7.8 g/dL (6.3-8.2) 10/06/21 07:10 Albumin 4.1 g/dL (3.5-5.0) 10/06/21 07:10 Triglycerides 78.50 mg/dL (0.00-149.00) 10/06/21 07:10 Cholesterol 268.00 mg/dL (0.00-200.00) H 10/06/21 07:10 LDL Cholesterol, Calc 187.8 mg/dL (0.0-131.0) H 10/06/21 07:10 VLDL Cholesterol, Calc 15.70 mg/dL (5.00-40.00) 10/06/21 07:10 HDL Cholesterol 64.50 mg/dL (40.00-60.00) H 10/06/21 07:10 Cholesterol/HDL Ratio 4.16 Ratio 10/06/21 07:10 TSH 2.740 mIU/L (0.465-4.680) 10/06/21 07:10 Coronavirus (PCR) Not Detected (Not Detectd) 10/04/21 23:38 Vital Signs Temp 97.1 F L 10/10/21 09:02 Pulse 92 10/10/21 09:02 Resp 18 10/10/21 09:02 BP 157/72 10/10/21 09:02 Pulse Ox 97 10/10/21 09:02 Intake & Output 10/09/21 10/10/21 10/10/21 18:59 06:59 18:59 Weight 134.5 kg Plan - Discharge Summary Discharge Rx Participant: No New Discharge Prescriptions: New DULoxetine HCL [Cymbalta] 60 mg PO DAILY 30 Days Paliperidone [Invega] 9 mg PO HS 30 Days tablet clonazePAM [KlonoPIN] 1 mg PO BID PRN 14 Days #28 tab PRN Reason: Anxiety Melatonin 10 mg PO HS 30 Days tablet Pantoprazole [Protonix] 40 mg PO DAILY 30 Days tab Continue Albuterol Inhaler [Ventolin Hfa Inhaler] 2 puff INHALATION RT-Q4H PRN PRN Reason: Shortness Of Breath Discontinued Benztropine Mesylate [Cogentin] 0.5 mg PO BID 30 Days tab Paliperidone [Invega] 6 mg PO HS 30 Days tablet Sertraline [Zoloft] 100 mg PO DAILY 30 Days tab Omeprazole 20 mg PO BID Melatonin 5 mg PO HS PRN PRN Reason: SLEEP Paliperidone [Invega] 3 mg PO HS clonazePAM [KlonoPIN] 1 mg PO DAILY PRN PRN Reason: Anxiety lamoTRIgine [LaMICtal] 50 mg PO BID Discharge Medication List Albuterol Inhaler [Ventolin Hfa Inhaler] 2 puff INHALATION RT-Q4H PRN 09/07/21 [History] DULoxetine HCL [Cymbalta] 60 mg PO DAILY 30 Days 10/10/21 [Rx] Melatonin 10 mg PO HS 30 Days tablet 10/10/21 [Rx] Paliperidone [Invega] 9 mg PO HS 30 Days tablet 10/10/21 [Rx] Pantoprazole [Protonix] 40 mg PO DAILY 30 Days tab 10/10/21 [Rx] clonazePAM [KlonoPIN] 1 mg PO BID PRN 14 Days #28 tab 10/10/21 [Rx] Follow up Appointment(s)/Referral(s): Juan J Romero MD [Primary Care Provider] - 1-2 days Activity/Diet/Wound Care/Special Instructions: Activity and diet as tolerated. Avoid the use of street drugs and alcohol. Take all medications as prescribed. When you are in need of refills on your medications please contact your medical provider and/or outpatient psychiatrist to have this done. Please go to scheduled outpatient appointment for aftercare treatment. If symptoms return or become worse, call the crisis line at and/or go to the nearest emergency room for evaluation Discharge Disposition: HOME SELF-CARE
[2021-10-10] MEDS: clonazePAM 1 MG TAB PO PRN (10:40)
[2021-10-10] MEDS ORDERED: ALBUTEROL INHALER 60 PUFF/8 GM INHALER (MHU) INHALATION PRN (11:33)
== END 2021-10-10 13:43 | disposition home or self-care (01) | DRG 885 ==
LOC: EC 21:01 → 3MHU 10-05 01:46
PROVIDERS: ADMIT Psychiatry & Neurology Psychiatry; ATTEND Psychiatry & Neurology Psychiatry
DX: F25.0 Schizoaffective disorder, bipolar type (principal); Z68.41 Body mass index [BMI] 40.0-44.9, adult; F79 Unspecified intellectual disabilities; F41.0 Panic disorder [episodic paroxysmal anxiety]; E66.3 Overweight; Z20.822 Contact with and (suspected) exposure to COVID-19; F89 Unspecified disorder of psychological development; Z91.128 Patient's intentional underdosing of medication regimen for other reason; T50.916A Underdosing of multiple unspecified drugs, medicaments and biological substances, initial encounter; K21.9 Gastro-esophageal reflux disease without esophagitis; G47.00 Insomnia, unspecified; Z79.899 Other long term (current) drug therapy; Z60.2 Problems related to living alone; Z71.51 Drug abuse counseling and surveillance of drug abuser; Z71.41 Alcohol abuse counseling and surveillance of alcoholic; Z88.8 Allergy status to other drugs, medicaments and biological substances; Z91.040 Latex allergy status; Z81.8 Family history of other mental and behavioral disorders
CPT/HCPCS: 80053; 80061; 82075; 83036; 84443; 85025; 87635; 99285

== ENCOUNTER 2021-11-30 13:38 | Emergency (ER) | payer MEDICARE, OTHER ==
[2021-11-30 14:05] VITALS: TEMP 98.6
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
[2021-11-30 14:41] VITALS: BP 132/75; PULSE 87; RESP 16
== END 2021-11-30 15:00 | disposition home or self-care (01) ==
LOC: EC 13:38
DX: F43.20 Adjustment disorder, unspecified (principal); J45.909 Unspecified asthma, uncomplicated; K21.9 Gastro-esophageal reflux disease without esophagitis; F31.9 Bipolar disorder, unspecified; F41.9 Anxiety disorder, unspecified; F20.9 Schizophrenia, unspecified; F12.90 Cannabis use, unspecified, uncomplicated; Z79.51 Long term (current) use of inhaled steroids; Z79.899 Other long term (current) drug therapy
CPT/HCPCS: 93005; 99285

== ENCOUNTER 2022-01-29 21:03 | Emergency (ER) | payer MEDICARE, OTHER ==
[2022-01-29 21:10] VITALS: BP 138/89; PULSE 87; RESP 18; TEMP 98.4
[2022-01-29] MEDS ORDERED: ACETAMINOPHEN TAB 500 MG TAB PO STA (21:19)
[2022-01-29] MEDS ORDERED: KETOROLAC 15 MG/ML 1 ML VIAL IVP STA (21:19)
[2022-01-29] MEDS ORDERED: ORPHENADRINE 30 MG/ML 2 ML VIAL IM STA (21:19)
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
[2022-01-29] MEDS ORDERED: KETOROLAC 15 MG/ML 1 ML VIAL IM STA (22:03)
--- NOTE | 2022-01-29 22:04 | XR ---
EXAMINATION TYPE: XR Hip RT and AP Pelvis DATE OF EXAM: 01/29/2022 COMPARISON: NONE HISTORY: Hip pain TECHNIQUE: 3 views FINDINGS: The pelvic ring is intact. Proximal right femur and hip joint appear intact. Hip joint spac e is fairly normal. No fracture seen. Sacroiliac joints are intact. IMPRESSION: Negative pelvis and right hip exam. No fracture.
== END 2022-01-29 22:42 | disposition home or self-care (01) ==
LOC: EC 21:03
DX: M70.61 Trochanteric bursitis, right hip (principal); J45.909 Unspecified asthma, uncomplicated; K21.9 Gastro-esophageal reflux disease without esophagitis; Z91.040 Latex allergy status; Z88.8 Allergy status to other drugs, medicaments and biological substances; Z79.899 Other long term (current) drug therapy
CPT/HCPCS: 73502; 99283; 96372; J2360; J1885

== ENCOUNTER 2022-02-03 00:11 | Emergency (ER) | payer MEDICARE, OTHER ==
[2022-02-03 00:19] VITALS: RESP 16; TEMP 97.2
[2022-02-03 04:52] LABS: Basophils # (A) 0.1 k/uL (0-0.2); Basophils % (A) 1 %; Eosinophils # (A) 0.2 k/uL (0-0.7); Eosinophils % (A) 3 %; HGB 12.7 gm/dL (11.4-16.0); Lymphocytes # (A) 1.6 k/uL (1.0-4.8); Lymphocytes % (A) 23 %; MCH 27.4 pg (25.0-35.0); MCHC 31.8 g/dL (31.0-37.0); Mean Platelet Volume 7.1; Monocytes # (A) 0.3 k/uL (0-1.0); Monocytes % (A) 5 %; Neutrophils # (A) 4.5 k/uL (1.3-7.7); Neutrophils % (A) 67 %; Platelet Count 311 k/uL (150-450); RBC 4.65 m/uL (3.80-5.40); RDW 13.3 % (11.5-15.5); WBC 6.7 k/uL (3.8-10.6)
[2022-02-03 05:07] LABS: ALT 24 U/L (4-34); AST 31 U/L (14-36); African American GFR (CKD) >90 (>60 ml/min/1.73 sqM); Albumin 3.9 g/dL (3.5-5.0); Alkaline Phosphatase 79 U/L (38-126); Anion Gap 5 mmol/L; Blood Urea Nitrogen 7 mg/dL (7-17); Calcium 8.8 mg/dL (8.4-10.2); Carbon Dioxide 27 mmol/L (22-30); Chloride 102 mmol/L (98-107); Glucose 100 mg/dL (74-99); Non-African American GFR(CKD) >90 (>60 ml/min/1.73 sqM); Sodium 134 mmol/L (137-145); Total Bilirubin 0.5 mg/dL (0.2-1.3); Total Protein 7.3 g/dL (6.3-8.2)
[2022-02-03 05:11] LABS: INR 0.9 (<1.2); Partial Thromboplastin Time 23.7 sec (22.0-30.0)
[2022-02-03 05:22] LABS: Potassium 5.2 mmol/L (3.5-5.1)
--- NOTE | 2022-02-03 05:43 | XR ---
EXAM: XR Chest, 2 Views CLINICAL HISTORY: ITS.REASON XR Reason: difficulty breathing TECHNIQUE: Frontal and lateral views of the chest. COMPARISON: Comparison made to prior chest x-ray from September 06, 2021. FINDINGS: Lungs: Diffuse interstitial opacities with moderate peribronchial thickening of the central bronchi. No consolidation. Pleural space: Unremarkable. No pneumothorax. Heart: Unremarkable. No cardiomegaly. Mediastinum: Unremarkable. Bones/joints: Unremarkable. IMPRESSION: Findings concerning for atypical pneumonia. No consolidation.
--- NOTE | 2022-02-03 07:17 | CT ---
EXAM: CT Angiography Chest With Intravenous Contrast CLINICAL HISTORY: ITS.REASON CT Reason: Possible PE TECHNIQUE: Axial computed tomographic angiography images of the chest with intravenous contrast. CTDI is 26.17 mGy and DLP is 645.3 mGy-cm. This CT exam was performed using one or more of the following dose reduction techniques: automated exposure control, adjustment of the mA and/or kV according to patient size, and/or use of iterative reconstruction technique. MIP reconstructed images were created and reviewed. COMPARISON: No relevant prior studies available. FINDINGS: LUNGS: There is no focal infiltrate. There is no pleural effusion or pneumothorax. The tracheobronchial tree is patent. HEART: Within normal limits. VASCULATURE: No acute pulmonary embolism. THYROID: Within normal limits. MEDIASTINUM + LYMPH NODES: There are no pathologically enlarged mediastinal, hilar, or axillary lymph nodes. SUPERIOR ABDOMEN: MUSCULOSKELETAL: Within normal limits. IMPRESSION: No acute pulmonary embolism.
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
[2022-02-03 07:57] VITALS: BP 105/53; PULSE 56
== END 2022-02-03 08:12 | disposition home or self-care (01) ==
LOC: EC 00:11
DX: R06.00 Dyspnea, unspecified (principal); F41.9 Anxiety disorder, unspecified; J45.909 Unspecified asthma, uncomplicated; K21.9 Gastro-esophageal reflux disease without esophagitis; Z79.83 Long term (current) use of bisphosphonates; Z20.822 Contact with and (suspected) exposure to COVID-19; Z88.8 Allergy status to other drugs, medicaments and biological substances; Z91.040 Latex allergy status
CPT/HCPCS: 36415; 85379; 83880; 80053; 83605; 84484; 85025; 85610; 85730; 87635; 71046; 71275; 99285; Q9967

== ENCOUNTER 2022-02-05 01:16 | Inpatient (IN) | payer MEDICARE, MEDICAID ==
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
[2022-02-05] MEDS ORDERED: MAGNESIUM HYDROXIDE 2,400 MG/10 ML CUP PO PRN (09:04)
[2022-02-05] MEDS ORDERED: HALOPERIDOL LACTATE 5 MG/ML 1 ML VIAL IM PRN (09:04)
[2022-02-05] MEDS ORDERED: NICOTINE 14MG/24HR PATCH TRANSDERM SCH (09:15)
[2022-02-05] MEDS ORDERED: traZODone HCL 50 MG TAB PO PRN (12:31)
[2022-02-05] MEDS ORDERED: hydrOXYzine HCL 25 MG TAB PO PRN (12:31)
[2022-02-05] MEDS: OXcarbazepine 150 MG TAB PO SCH ×2 (12:57→20:05)
[2022-02-05] MEDS: PALIPERIDONE 3 MG TAB.ER.24 PO SCH (12:57)
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
--- NOTE | 2022-02-05 18:07 | CONS ---
CONSULTATION CHIEF COMPLAINT: Schizoaffective disorder with acute psychosis. HISTORY OF PRESENT ILLNESS: This is another recent admission for this 41-year-old female with a long-standing history of psychiatric issues. She was just seen in the office following her last discharge and seemed to be doing well. She had a small abscess in her left arm where she had been given an injection. This was drained. Apparently she called police to bring her back to the emergency room, stating that her "medicines were not working properly." Review of systems cannot be obtained. She is extremely agitated and aggressive at this time. Past medical history, family history, and personal and social histories are all unchanged. PHYSICAL EXAMINATION: Blood pressure is 138/90 with a pulse of 73, respirations of 21. She is afebrile. In general she appeared to be slightly obese and very agitated. Head, ears, eyes, nose, mouth and throat were grossly normal. Chest was clear. Cardiac exam demonstrated sinus rhythm. Remainder of exam was not performed. IMPRESSION: 1. Acute psychosis. 2. Schizoaffective disorder. RECOMMENDATIONS: None at this time. MMODL / IJN: [id number] /
[2022-02-06] MEDS: OXcarbazepine 150 MG TAB PO SCH (08:30)
[2022-02-06] MEDS: PALIPERIDONE 3 MG TAB.ER.24 PO SCH (08:30)
--- NOTE | 2022-02-06 12:07 | P.PN ---
Progress Note - Text Progress Note Date: 02/06/22 Interval History: Patient was seen wandering the hallways and was directable and agreeable to speak with insurance writer in the office. The patient comes of kamari at this time. She does report that she is feeling "very hyper" and is unable to slow down her speech. She does report that she was able to sleep well last night. She does state that she is concerned about her foot as she notices a bump on her plantar side of her foot. She is otherwise not reporting any suicidal or homicidal ideation, intention, and/or plan. She is not reporting any auditory or visual hallucinations. She denies any paranoia or other delusions. The patient does endorse racing thoughts. She has been adherent with her medications and is not reporting any significant side effects at this time. Mental Status Exam: General Appearance: Patient appears to be stated age is alert, directable, and cooperative. Behavior: She displays elevated psychomotor activity. She appears overtly restless and is constantly pacing in the room. Speech: Patient's speech is pressured, loud in volume. Tangential. Mood/Affect: Mood is "feeling hyper." Affect is expansive. Suicidality/Homicidality: Patient denies any suicidal or homicidal ideation, intention, and/or plan. Perceptions: Patient denies any visual hallucinations and denies any auditory hallucinations Though content/process: Flight of ideas is evident. Memory and concentration: AOX3, grossly intact for the purposes of this session Judgment and insight: Improving mildly Vital Signs Temp 98.2 F 02/05/22 09:04 Pulse 65 02/05/22 09:04 Resp 18 02/05/22 09:04 BP 142/72 02/05/22 09:04 Pulse Ox 99 02/05/22 03:23 FiO2 Intake & Output 02/05/22 02/06/22 02/06/22 18:59 06:59 18:59 Weight 120.202 kg Assessment Schizoaffective disorder, bipolar type Cannabis use disorder Intellectual disability Plan: -Patient continues to meet criteria for inpatient psychiatric admission for symptom stabilization and safety. Patient has signed adult voluntary form and medication consent and was placed in patient's chart. -Medications: Increase Invega to 6 mg by mouth daily for mood stabilization Start lithium 300 mg by mouth twice a day for mood stabilization. Discontinue Trileptal -When necessary Ativan and Haldol for agitation/aggression. -SW on board for discharge planning. Encouraged the patient to participate in milieu.
[2022-02-06 15:04] LABS: Basophils # (A) 0.1 k/uL (0-0.2); Basophils % (A) 1 %; Eosinophils # (A) 0.2 k/uL (0-0.7); Eosinophils % (A) 3 %; HCT 40.4 % (34.0-46.0); Lymphocytes # (A) 1.9 k/uL (1.0-4.8); Lymphocytes % (A) 23 %; MCH 27.9 pg (25.0-35.0); MCHC 32.2 g/dL (31.0-37.0); MCV 86.6 fL (80.0-100.0); Monocytes # (A) 0.4 k/uL (0-1.0); Monocytes % (A) 5 %; Neutrophils # (A) 5.3 k/uL (1.3-7.7); Neutrophils % (A) 67 %; Platelet Count 347 k/uL (150-450); RBC 4.66 m/uL (3.80-5.40); RDW 13.5 % (11.5-15.5)
[2022-02-06] MEDS: LORazepam 1 MG TAB PO PRN (15:07)
[2022-02-06] MEDS: haloperidoL 5 MG TAB PO PRN (15:07)
[2022-02-06 15:20] LABS: ALT 17 U/L (4-34); AST 25 U/L (14-36); African American GFR (CKD) >90 (>60 ml/min/1.73 sqM); Albumin 4.4 g/dL (3.5-5.0); Alkaline Phosphatase 90 U/L (38-126); Anion Gap 6 mmol/L; Blood Urea Nitrogen 9 mg/dL (7-17); Calcium 9.3 mg/dL (8.4-10.2); Carbon Dioxide 31 mmol/L (22-30); Chloride 100 mmol/L (98-107); Glucose 91 mg/dL (74-99); Non-African American GFR(CKD) >90 (>60 ml/min/1.73 sqM); Potassium 4.1 mmol/L (3.5-5.1); Sodium 137 mmol/L (137-145); Total Bilirubin 0.4 mg/dL (0.2-1.3); Total Protein 7.9 g/dL (6.3-8.2)
[2022-02-06] MEDS: LITHIUM CARBONATE 300 MG CAP PO SCH (20:17)
[2022-02-07] MEDS: LITHIUM CARBONATE 300 MG CAP PO SCH (08:37)
[2022-02-07] MEDS ORDERED: PALIPERIDONE 3 MG TAB.ER.24 PO SCH (09:00)
--- NOTE | 2022-02-07 10:06 | P.PN ---
Progress Note - Text Progress Note Date: 02/07/22 Interval History: Patient was seen wandering the hallways and was directable and agreeable to speak with com writer in the office. Patient reports that she is feeling significantly better. She reports that she slept very well last night and approximates 9 hours. She is currently not reporting any suicidal or homicidal ideation, intention, and/or plan. She is denying any auditory or visual hallucinations. She reports no paranoia or other delusions. Patient expresses that her racing thoughts have decreased. She reports that she feels "less hyper." She feels that the lithium has been helping her mood stabilize. Mental Status Exam: General Appearance: Patient appears to be stated age is alert, directable, and cooperative. Behavior: She displays elevated psychomotor activity. She appears overtly restless and is constantly pacing in the room. Speech: Patient's speech is loud in volume however less pressured and more linear. Mood/Affect: Mood is "I'm feeling better" Affect is within normal range today. Suicidality/Homicidality: Patient denies any suicidal or homicidal ideation, intention, and/or plan. Perceptions: Patient denies any visual hallucinations and denies any auditory hallucinations Though content/process: Much more linear and logical in short conversation. Memory and concentration: AOX3, grossly intact for the purposes of this session Judgment and insight: Improving mildly Vital Signs Temp 98.2 F 02/05/22 09:04 Pulse 65 02/05/22 09:04 Resp 18 02/05/22 09:04 BP 142/72 02/05/22 09:04 Pulse Ox 99 02/05/22 03:23 FiO2 Laboratory Results - Last 24 Hours 02/06/22 02/06/22 14:43 14:43 WBC 8.0 RBC 4.66 Hgb 13.0 Hct 40.4 MCV 86.6 MCH 27.9 MCHC 32.2 RDW 13.5 Plt Count 347 MPV 7.0 Neutrophils % 67 Lymphocytes % 23 Monocytes % 5 Eosinophils % 3 Basophils % 1 Neutrophils # 5.3 Lymphocytes # 1.9 Monocytes # 0.4 Eosinophils # 0.2 Basophils # 0.1 Sodium 137 Potassium 4.1 Chloride 100 Carbon Dioxide 31 H Anion Gap 6 BUN 9 Creatinine 0.67 Est GFR (CKD-EPI)AfAm >90 Est GFR (CKD-EPI)NonAf >90 Glucose 91 Calcium 9.3 Total Bilirubin 0.4 AST 25 ALT 17 Alkaline Phosphatase 90 Total Protein 7.9 Albumin 4.4 Assessment Schizoaffective disorder, bipolar type Cannabis use disorder Intellectual disability Plan: -Patient continues to meet criteria for inpatient psychiatric admission for symptom stabilization and safety. Patient has signed adult voluntary form and medication consent and was placed in patient's chart. -Medications: Continue Invega to 6 mg by mouth daily for mood stabilization Increase lithium to 450 mg by mouth twice a day for mood stabilization As per chart review, the patient last received Invega Sustenna 156 mg IM on 01/16/2022. She is due for her next injection on 02/15/2022. -When necessary Ativan and Haldol for agitation/aggression. -SW on board for discharge planning. Encouraged the patient to participate in milieu.
[2022-02-07] MEDS ORDERED: LORazepam 2 MG/ML INJ IM PRN (14:07)
[2022-02-07] MEDS ORDERED: LORazepam 2 MG/ML INJ ONE (14:10)
[2022-02-07] MEDS: MAG HYDROX/AL HYDROX/SIMETH 30 ML CUP PO PRN (14:18)
[2022-02-07] MEDS: LITHIUM CARBONATE 150 MG CAP PO SCH (21:59)
[2022-02-08] MEDS: LITHIUM CARBONATE 150 MG CAP PO SCH (08:24)
[2022-02-08] MEDS: ACETAMINOPHEN TAB 325 MG TAB PO PRN (08:25)
[2022-02-08] MEDS: MAG HYDROX/AL HYDROX/SIMETH 30 ML CUP PO PRN (08:51)
[2022-02-08] MEDS ORDERED: PALIPERIDONE 3 MG TAB.ER.24 PO SCH ×2 (09:00)
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
[2022-02-08] MEDS: LORazepam 1 MG TAB PO PRN (13:31)
[2022-02-08] MEDS: LITHIUM CARBONATE 300 MG CAP PO SCH (19:43)
[2022-02-09] MEDS: PALIPERIDONE 3 MG TAB.ER.24 PO SCH (08:37)
[2022-02-09] MEDS: LITHIUM CARBONATE 150 MG CAP PO SCH (08:37)
--- NOTE | 2022-02-09 11:44 | P.PN ---
Progress Note - Text Progress Note Date: 02/09/22 Interval History: Patient was seen resting in bed and was directable and agreeable to speak with writer editor in her room. The patient reports that she did experience a visual hallucination of the devil last night. She reports that it caused her to feel scared however she got out of bed to check for was really there and it wasn't. She is otherwise not reporting any auditory hallucinations or any other psychotic symptoms at this time. She is reporting no paranoia or other d elusions. She is currently denying any suicidal or homicidal ideation, intention, and/or plan. She has been in adherent with her medications and is not endorsing any significant side effects aside from mild GI discomfort. She reports no issues regarding her sleep or her appetite. Mental Status Exam: General Appearance: Patient appears to be stated age is alert, directable, and cooperative. Behavior: She displays normal psychomotor activity today. Speech: Patient's speech is loud in volume, however fluent and easy to follow. Mood/Affect: Mood is "I feel okay" Affect is euthymic with appropriate range. Suicidality/Homicidality: Patient denies any suicidal or homicidal ideation, intention, and/or plan. Perceptions: Patient endorsed visual hallucinations last night. No auditory hallucinations. Though content/process: The patient does not endorse any overt delusions at this time. Thought process appears to be linear and logical in short conversations. Memory and concentration: AOX3, grossly intact for the purposes of this session Judgment and insight: Improving mildly Vital Signs Temp 97.6 F 02/09/22 06:29 Pulse 97 02/09/22 06:29 Resp 16 02/09/22 06:29 BP 104/71 02/09/22 06:29 Pulse Ox 99 02/09/22 06:29 FiO2 Assessment Schizoaffective disorder, bipolar type Cannabis use disorder Intellectual disability Plan: -Patient continues to meet criteria for inpatient psychiatric admission for symptom stabilization and safety. Patient has signed adult voluntary form and medication consent and was placed in patient's chart. -Medications: Continue Invega9 mg by mouth daily for mood stabilization Continue lithium to 450 mg by mouth in the morning and 600 mg at bedtime for mood stabilization. Draw lithium level this weekend. As per chart review, the patient last received Invega Sustenna 156 mg IM on 01/16/2022. She is due for her next injection on 02/15/2022. -When necessary Ativan and Haldol for agitation/aggression. -SW on board for discharge planning. Encouraged the patient to participate in milieu.
[2022-02-09] MEDS: ACETAMINOPHEN TAB 325 MG TAB PO PRN (12:07)
[2022-02-09] MEDS: MAG HYDROX/AL HYDROX/SIMETH 30 ML CUP PO PRN (12:08)
[2022-02-09] MEDS ORDERED: PANTOPRAZOLE 40 MG TABLET PO STA (12:11)
[2022-02-09] MEDS: LORazepam 1 MG TAB PO PRN (14:58)
[2022-02-09] MEDS: LITHIUM CARBONATE 300 MG CAP PO SCH (20:40)
[2022-02-10] MEDS: haloperidoL 5 MG TAB PO PRN ×2 (00:26→16:58)
[2022-02-10] MEDS: LITHIUM CARBONATE 150 MG CAP PO SCH (09:08)
[2022-02-10] MEDS: PANTOPRAZOLE 40 MG TABLET PO SCH (09:09)
[2022-02-10] MEDS: PALIPERIDONE 3 MG TAB.ER.24 PO SCH (09:09)
[2022-02-10] MEDS: LORazepam 1 MG TAB PO PRN (16:58)
--- NOTE | 2022-02-10 18:42 | P.PN ---
Progress Note - Text Progress Note Date: 02/10/22 Interval History: Patient was seen in the hallways and was agreeable to talking with this psychiatrist. She presents as hyperactive with pressured speech. She speaks in loud tone and insight appears limited. She complains of feeling lightheaded and "off-balance" but onjectively appears to be ambulating without difficulty. She reports her mood is "pretty good" and reports good sleep and appetite. She denies auditory or visual hallucinations at this time. No paranoia or other delusions expressed. She is currently denying any suicidal or homicidal ideation, intention, and/or plan. She has been compliant with her medications and is not endorsing any significant side effects, other than the vague lightheadedness she described which we will monitor. Mental Status Exam: General Appearance: Patient appears to be stated age, is obese, wearing hospital gown. Orientation: She is alert and oriented to person, place, time. Behavior: She does not become agitated, but she does appear hyperactive. Speech: Patient's speech is loud in volume, hyperverbal, fluent and coherent. Mood/Affect: Mood is "pretty good"; Affect is elevated Suicidality/Homicidality: Patient denies any suicidal or homicidal ideation, intention, and/or plan. Perceptions: Patient denies visual hallucinations and auditory hallucinations. Though content/process: The patient does not endorse any overt delusions at this time. Thought process appears to be linear and logical in short conversations. Memory and concentration: Grossly intact for the purposes of this session Judgment and insight: Improving mildly Assessment: Schizoaffective disorder, bipolar type Cannabis use disorder Intellectual disability Plan: -Patient continues to meet criteria for inpatient psychiatric admission for symptom stabilization and safety. Patient has signed adult voluntary form and medication consent and was placed in patient's chart. -Medications: Continue Invega 9 mg by mouth daily for mood stabilization Continue [place] 450 mg by mouth in the morning and 600 mg at bedtime for mood stabilization. [place] level ordered for tomorrow 02/11, and will adjust dose as necessary based on results. As per chart review, the patient last received Invega Sustenna 156 mg IM on 01/16/2022. She is due for her next injection on 02/15/2022. -When necessary Ativan and Haldol for agitation/aggression. -SW on board for discharge planning. Encouraged the patient to participate in milieu.
[2022-02-10] MEDS: LITHIUM CARBONATE 300 MG CAP PO SCH (21:38)
[2022-02-11] MEDS: LITHIUM CARBONATE 150 MG CAP PO SCH (09:19)
[2022-02-11] MEDS: PANTOPRAZOLE 40 MG TABLET PO SCH (09:19)
[2022-02-11] MEDS: PALIPERIDONE 3 MG TAB.ER.24 PO SCH (09:19)
[2022-02-11] MEDS: LITHIUM CARBONATE 300 MG CAP PO SCH (20:09)
--- NOTE | 2022-02-11 20:24 | P.PN ---
Progress Note - Text Progress Note Date: 02/11/22 Interval History: Patient was seen in the hallways and was agreeable to talking with this psychiatrist. She presents as hyperactive, childlike and talkative, but not pressured. She speaks in loud tone and insight appears to be improved. She reports her mood is "pretty good" and reports good sleep and appetite. She denies auditory or visual hallucinations at this time. No paranoia or other delusions expressed. She is currently denying any suicidal or homicidal ideation, intention, and/or plan. She has been compliant with her medications and is not endorsing any significant side effects. She does report some social anxiety around people and especially around guys. She was compliant with her bloodwork this morning, and her [place] level this morning was 0.5. Mental Status Exam: General Appearance: Patient appears to be stated age, is obese, wearing hospital gown. Orientation: She is alert and oriented to person, place, time and situation. Behavior: She does not become agitated, but she does appear hyperactive. Speech: Patient's speech is loud in volume, hyperverbal, fluent and coherent. Mood/Affect: Mood is "pretty good"; Affect is congruent. Suicidality/Homicidality: Patient denies any suicidal or homicidal ideation, intention, and/or plan. Perceptions: Patient denies visual hallucinations and auditory hallucinations. Though content/process: The patient does not endorse any overt delusions at this time. Thought process appears to be linear and logical in short conversations. Memory and concentration: Grossly intact for the purposes of this session Judgment and insight: Improving mildly Assessment: Schizoaffective disorder, bipolar type Cannabis use disorder Intellectual disability Plan: -Patient continues to meet criteria for inpatient psychiatric admission for symptom stabilization and safety. Patient has signed adult voluntary form and medication consent and was placed in patient's chart. -Medications: Continue Invega 9 mg by mouth daily for mood stabilization Increase [place] to 600 mg BID for mood stabilization. [place] level reviewed from this morning and level was 0.5 on 02/11/2022. As per chart review, the patient last received Invega Sustenna 156 mg IM on 01/16/2022. She is due for her next injection on 02/15/2022. -When necessary Ativan and Haldol for agitation/aggression. -SW on board for discharge planning. Encouraged the patient to participate in milieu.
[2022-02-11] MEDS ORDERED: LITHIUM CARBONATE 300 MG CAP PO SCH (21:00)
[2022-02-11] MEDS: ACETAMINOPHEN TAB 325 MG TAB PO PRN (23:10)
[2022-02-11] MEDS: LORazepam 1 MG TAB PO PRN (23:10)
[2022-02-12] MEDS: PALIPERIDONE 3 MG TAB.ER.24 PO SCH (08:37)
[2022-02-12] MEDS: LITHIUM CARBONATE 300 MG CAP PO SCH ×2 (08:37→20:45)
[2022-02-12] MEDS: PANTOPRAZOLE 40 MG TABLET PO SCH (08:37)
--- NOTE | 2022-02-12 16:45 | P.PN ---
Progress Note - Text Progress Note Date: 02/12/22 Interval History: Patient was laying down and is agreeable to talking with this psychiatrist. She presents with good mood, is pleasant, and states she is doing better today. She is tolerating her medications and denies any medication side effects. She states she feels her medications are now "perfect" and hopes nothing else needs to changed around. She reports good sleep and appetite. She denies auditory or visual hallucinations at this time. She reports concern that someone may try to hurt or kill her outside of her, so she has to be careful and mind her own business. She is currently denying any suicidal or homicidal ideation, intention, and/or plan. Mental Status Exam: General Appearance: Patient appears to be stated age, is obese, wearing hospital gown. Orientation: She is alert and oriented to person, place, time and situation. Behavior: She does not become agitated, but she does appear hyperactive. Speech: Patient's speech is loud in volume, hyperverbal, fluent and coherent. Mood/Affect: Mood is "pretty good"; Affect is congruent. Suicidality/Homicidality: Patient denies any suicidal or homicidal ideation, intention, and/or plan. Perceptions: Patient denies visual hallucinations and auditory hallucinations. Though content/process: The patient does not endorse any overt delusions at this time. Thought process appears to be linear and logical in short conversations. Memory and concentration: Grossly intact for the purposes of this session Judgment and insight: Improving mildly Assessment: Schizoaffective disorder, bipolar type Cannabis use disorder Intellectual disability Plan: -Patient continues to meet criteria for inpatient psychiatric admission for symptom stabilization and safety. Patient has signed adult voluntary form and medication consent and was placed in patient's chart. -Medications: Continue Invega 9 mg by mouth daily for mood stabilization Continue [place] 600 mg BID for mood stabilization. Repeat [place] level ordered for Sunday02/14/22. As per chart review, the patient last received Invega Sustenna 156 mg IM on 01/16/2022. She is due for her next injection on 02/15/2022. -When necessary Ativan and Haldol for agitation/aggression. -SW on board for discharge planning. Encouraged the patient to participate in milieu.
[2022-02-12] MEDS: LORazepam 1 MG TAB PO PRN (18:32)
[2022-02-13] MEDS: PANTOPRAZOLE 40 MG TABLET PO SCH (09:15)
[2022-02-13] MEDS: PALIPERIDONE 3 MG TAB.ER.24 PO SCH (09:16)
[2022-02-13] MEDS: LITHIUM CARBONATE 300 MG CAP PO SCH ×2 (09:16→20:42)
[2022-02-13] MEDS: LORazepam 1 MG TAB PO PRN (10:53)
--- NOTE | 2022-02-13 16:07 | P.PN ---
Progress Note - Text Progress Note Date: 02/13/22 Interval History: Patient was laying down in bed napping, awakens easily to name, and is agreeable to talking with this psychiatrist. She presents with good mood, denies any concerns today. She is tolerating her medications and denies any medication side effects. She reports good sleep and appetite. She denies auditory or visual hallucinations at this time. She is currently denying any suicidal or homicidal ideation, intention, and/or plan. Mental Status Exam: General Appearance: Patient appears to be stated age, is obese, wearing hospital gown. Orientation: She is alert and oriented to person, place, time and situation. Behavior: She does not become agitated. Speech: Patient's speech is fluent and nonpressured. Mood/Affect: Mood is "good"; Affect is congruent. Suicidality/Homicidality: Patient denies any suicidal or homicidal ideation, intention, and/or plan. Perceptions: Patient denies visual hallucinations and auditory hallucinations. Though content/process: The patient does not endorse any overt delusions at this time. Thought process appears to be linear and logical.. Memory and concentration: Grossly intact for the purposes of this session Judgment and insight: Improving Assessment: Schizoaffective disorder, bipolar type Cannabis use disorder Intellectual disability Plan: -Patient continues to meet criteria for inpatient psychiatric admission for symptom stabilization and safety. Patient has signed adult voluntary form and medication consent and was placed in patient's chart. -Medications: Continue Invega 9 mg by mouth daily for mood stabilization Continue [place] 600 mg BID for mood stabilization. Repeat [place] level ordered for Sunday02/14/22. As per chart review, the patient last received Invega Sustenna 156 mg IM on 01/16/2022. She is due for her next injection on 02/15/2022. -When necessary Ativan and Haldol for agitation/aggression. -SW on board for discharge planning. Encouraged the patient to participate in milieu.
[2022-02-14] MEDS: PALIPERIDONE 3 MG TAB.ER.24 PO SCH (09:08)
[2022-02-14] MEDS: LITHIUM CARBONATE 300 MG CAP PO SCH ×2 (09:08→20:47)
[2022-02-14] MEDS: PANTOPRAZOLE 40 MG TABLET PO SCH (09:08)
[2022-02-14] MEDS ORDERED: PALIPERIDONE IM 156 MG/ML SYG IM STA (09:24)
--- NOTE | 2022-02-14 12:23 | P.PN ---
Progress Note - Text Progress Note Date: 02/14/22 Interval History: Patient was seen resting in bed and was directable and agreeable to speak with investment underwriter in the office. Currently, the patient is not reporting any suicidal or homicidal ideation, intention, and/or plan. She is not reporting any auditory or visual hallucinations. She denies any paranoia or other delusions. She has been sleeping well and eating well. She denies any side effects of the medications and has been adherent at this time. The patient is agreeable to transition to Invega Sustenna. She does report that she felt a little lightheaded after giving blood for the lithium level. Mental Status Exam: General Appearance: Patient appears to be stated age is alert, directable, and cooperative. Behavior: She displays normal psychomotor activity today. Speech: Patient's speech is loud in volume, however fluent and easy to follow. Mood/Affect: Mood is "I'm in no roland, I feel good." Affect is euthymic with appropriate range. Suicidality/Homicidality: Patient denies any suicidal or homicidal ideation, intention, and/or plan. Perceptions: Patient reports no auditory or visual hallucinations. Though content/process: The patient does not endorse any overt delusions at this time. Thought process appears to be linear and logical in short conversations. Memory and concentration: AOX3, grossly intact for the purposes of this session Judgment and insight: Improving mildly Vital Signs Temp 97.8 F 02/14/22 06:55 Pulse 55 L 02/14/22 06:55 Resp 16 02/14/22 06:55 BP 106/59 02/14/22 06:55 Pulse Ox 99 02/09/22 06:29 FiO2 Laboratory Results - Last 24 Hours 02/14/22 07:03 Catharine 0.5 Assessment Schizoaffective disorder, bipolar type Cannabis use disorder Intellectual disability Plan: -Patient continues to meet criteria for inpatient psychiatric admission for symptom stabilization and safety. Patient has signed adult voluntary form and medication consent and was placed in patient's chart. -Medications: Discontinue Invega as her transition back to Invega Sustenna 156 mg IM to be administered today. Continue lithium 600 mg by mouth twice a day for mood stabilization -When necessary Ativan and Haldol for agitation/aggression. -SW on board for discharge planning. Encouraged the patient to participate in milieu.
[2022-02-14] MEDS: LORazepam 1 MG TAB PO PRN (16:44)
[2022-02-14] MEDS: ACETAMINOPHEN TAB 325 MG TAB PO PRN (23:33)
[2022-02-15 07:29] VITALS: BP 115/55; PULSE 61; RESP 14; TEMP 98
[2022-02-15] MEDS: PANTOPRAZOLE 40 MG TABLET PO SCH (08:40)
[2022-02-15] MEDS: LITHIUM CARBONATE 300 MG CAP PO SCH (08:40)
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
== END 2022-02-15 14:35 | disposition home or self-care (01) | DRG 885 ==
LOC: EC 01:16 → 3MHU 09:01
PROVIDERS: ADMIT Psychiatry & Neurology Psychiatry; ATTEND Psychiatry & Neurology Psychiatry
DX: F25.0 Schizoaffective disorder, bipolar type (principal); L02.414 Cutaneous abscess of left upper limb; F12.20 Cannabis dependence, uncomplicated; F40.10 Social phobia, unspecified; F41.0 Panic disorder [episodic paroxysmal anxiety]; F79 Unspecified intellectual disabilities; G47.00 Insomnia, unspecified; J45.909 Unspecified asthma, uncomplicated; K21.9 Gastro-esophageal reflux disease without esophagitis; Z56.0 Unemployment, unspecified; Z81.8 Family history of other mental and behavioral disorders; Z91.410 Personal history of adult physical and sexual abuse; Z20.822 Contact with and (suspected) exposure to COVID-19
CPT/HCPCS: 80053; 80178; 82075; 85025; 87635

== ENCOUNTER 2022-11-14 14:08 | Emergency (ER) | payer MEDICARE, OTHER ==
[2022-11-14 14:48] VITALS: BP 109/77; PULSE 99; RESP 20; TEMP 98.4
[2022-11-14 18:20] LABS: Glucose,Whole Blood 96 mg/dL (70-110)
[2022-11-14] MEDS ORDERED: SODIUM CHLORIDE 0.9% 1,000 ML IV STA (18:45)
[2022-11-14 19:17] LABS: Basophils % (A) 0 %; Eosinophils % (A) 1 %; HCT 42.1 % (34.0-46.0); HGB 14.1 gm/dL (11.4-16.0); Lymphocytes # (A) 1.7 k/uL (1.0-4.8); Lymphocytes % (A) 20 %; MCH 28.7 pg (25.0-35.0); MCHC 33.6 g/dL (31.0-37.0); MCV 85.3 fL (80.0-100.0); Mean Platelet Volume 7.4; Monocytes # (A) 0.3 k/uL (0-1.0); Monocytes % (A) 4 %; Neutrophils # (A) 6.1 k/uL (1.3-7.7); Neutrophils % (A) 74 %; Platelet Count 317 k/uL (150-450); RBC 4.94 m/uL (3.80-5.40); RDW 12.7 % (11.5-15.5); WBC 8.2 k/uL (3.8-10.6)
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
[2022-11-14 19:31] LABS: Potassium 4.6 mmol/L (3.5-5.1)
[2022-11-14 19:33] LABS: ALT 23 U/L (4-34); AST 28 U/L (14-36); African American GFR (CKD) >90 (>60 ml/min/1.73 sqM); Albumin 4.3 g/dL (3.5-5.0); Alkaline Phosphatase 107 U/L (38-126); Anion Gap 10 mmol/L; Blood Urea Nitrogen 14 mg/dL (7-17); Calcium 9.6 mg/dL (8.4-10.2); Carbon Dioxide 23 mmol/L (22-30); Chloride 102 mmol/L (98-107); Glucose 96 mg/dL (74-99); Lipase 76 U/L (23-300); Magnesium 2.1 mg/dL (1.6-2.3); Non-African American GFR(CKD) >90 (>60 ml/min/1.73 sqM); Sodium 135 mmol/L (137-145); Total Bilirubin 0.4 mg/dL (0.2-1.3)
--- NOTE | 2022-11-14 19:41 | US ---
EXAMINATION TYPE: US abdomen limited DATE OF EXAM: 11/14/2022 COMPARISON: 07/26/2021 CLINICAL HISTORY: vomiting, RUQ pain. vomiting and RUQ pain. Cholecystectomy TECHNIQUE: Multiple sonographic images of the right upper quadrant are obtained. FINDINGS: EXAM MEASUREMENTS: Liver Length: 17.9 cm Gallbladder Wall: Surgically absent CBD: 0.23 cm Right Kidney: 11.4 x 5.0 x 5.6 cm Pancreas: Obscured by bowel gas Liver: wnl Gallbladder: Surgically absent Evidence for sonographic Redmond's sign: No CBD: wnl Right Kidney: wnl IMPRESSION: No acute process.
[2022-11-14] MEDS ORDERED: KETOROLAC 15 MG/ML 1 ML VIAL IVP STA (19:53)
[2022-11-14 20:13] LABS: Appearance,Urine Clear (Clear); Bacteria,Urine Moderate /hpf; Bilirubin,Urine Negative (Negative); Blood,Urine Trace (Negative); Color,Urine Light Yellow; Glucose,Urine (UA) Negative (Negative); Ketones,Urine Negative (Negative); Leukocyte Esterase,Urine Negative (Negative); Mucus,Urine Rare /hpf; Nitrite,Urine Negative (Negative); Protein,Urine Negative (Negative); RBC,Urine <1 /hpf (0-5); Specific Gravity,Urine 1.006 (1.001-1.035); Squamous Epithelial Cell,Urine 1 /hpf (0-4); Urobilinogen,Urine <2.0 mg/dL (<2.0); WBC,Urine 1 /hpf (0-5)
== END 2022-11-14 20:43 | disposition home or self-care (01) ==
LOC: EC 14:08
DX: R11.2 Nausea with vomiting, unspecified (principal); K21.9 Gastro-esophageal reflux disease without esophagitis; J45.909 Unspecified asthma, uncomplicated; F31.9 Bipolar disorder, unspecified; F41.9 Anxiety disorder, unspecified; Z91.040 Latex allergy status; Z88.8 Allergy status to other drugs, medicaments and biological substances; Z79.899 Other long term (current) drug therapy
CPT/HCPCS: 36415; 80053; 83690; 83735; 85025; 81001; 81025; 76705; 99284; 96374; 96361; J1885

== ENCOUNTER 2023-08-21 08:16 | Emergency (ER) | payer MEDICARE, OTHER ==
[2023-08-21 08:31] VITALS: RESP 16
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
[2023-08-21 09:23] VITALS: BP 140/82; PULSE 79; TEMP 98.9
== END 2023-08-21 09:20 | disposition home or self-care (01) ==
LOC: EC 08:16
DX: L72.9 Follicular cyst of the skin and subcutaneous tissue, unspecified (principal); J45.909 Unspecified asthma, uncomplicated; K21.9 Gastro-esophageal reflux disease without esophagitis; F31.9 Bipolar disorder, unspecified; F41.9 Anxiety disorder, unspecified; Z91.040 Latex allergy status; Z88.8 Allergy status to other drugs, medicaments and biological substances; Z79.899 Other long term (current) drug therapy
CPT/HCPCS: 99283

== ENCOUNTER 2024-01-30 15:50 | Emergency (ER) | payer MEDICARE, OTHER ==
[2024-01-30 16:00] VITALS: RESP 18
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
[2024-01-30] MEDS: SODIUM CHLORIDE 0.9% 1,000 ML IV STA (17:41)
[2024-01-30] MEDS: ONDANSETRON 4 MG/2 ML VIAL IVP STA (17:42)
[2024-01-30] MEDS: PANTOPRAZOLE 40 MG/10 ML VIAL IVP STA (17:43)
[2024-01-30 17:56] LABS: ALT 14 U/L (4-34); AST 22 U/L (14-36); African American GFR (CKD) >90 (>60 ml/min/1.73 sqM); Albumin 4.2 g/dL (3.5-5.0); Alkaline Phosphatase 98 U/L (38-126); Amylase 73 U/L (30-110); Anion Gap 9 mmol/L; Blood Urea Nitrogen 18 mg/dL (7-17); Calcium 9.2 mg/dL (8.4-10.2); Carbon Dioxide 21 mmol/L (22-30); Chloride 106 mmol/L (98-107); Glucose 119 mg/dL (74-99); Lipase 175 U/L (23-300); Non-African American GFR(CKD) >90 (>60 ml/min/1.73 sqM); Potassium 4.5 mmol/L (3.5-5.1); Sodium 136 mmol/L (137-145); Total Bilirubin 0.3 mg/dL (0.2-1.3); Total Protein 7.4 g/dL (6.3-8.2)
[2024-01-30 18:02] LABS: Basophils % (A) 0 %; Eosinophils % (A) 0 %; HCT 39.7 % (34.0-46.0); HGB 13.5 gm/dL (11.4-16.0); Lymphocytes # (A) 1.5 k/uL (1.0-4.8); Lymphocytes % (A) 27 %; MCH 29.6 pg (25.0-35.0); MCV 87.1 fL (80.0-100.0); Mean Platelet Volume 7.7; Monocytes # (A) 0.3 k/uL (0-1.0); Monocytes % (A) 6 %; Neutrophils # (A) 3.8 k/uL (1.3-7.7); Neutrophils % (A) 66 %; Platelet Count 270 k/uL (150-450); RBC 4.56 m/uL (3.80-5.40); RDW 12.7 % (11.5-15.5); WBC 5.8 k/uL (3.8-10.6)
--- NOTE | 2024-01-30 18:15 | CT ---
EXAMINATION TYPE: CT abdomen pelvis w con CT DLP: 1998.4 mGycm, Automated exposure control for dose reduction was used. DATE OF EXAM: 01/30/2024 5:40 PM COMPARISON: 07/26/2021 CLINICAL INDICATION:Female, 43 years old with history of abdominal pain; abdominal pain, vomiting TECHNIQUE: Axial CT abdomen pelvis w con;Sagittal and coronal reformats were created on a separate w orkstation. Contrast used:100 ml mL of Isovue 300 with IV Contrast, (none if empty) Oral contrast used: without Oral Contrast (none if empty) FINDINGS: LOWER CHEST: Unremarkable ABDOMEN LIVER: Unremarkable GALLBLADDER AND BILE DUCTS: The gallbladder is surgically absent. PANCREAS: Unremarkable. SPLEEN: Unremarkable. ADRENAL GLANDS: Unremarkable. KIDNEYS AND URETERS: No evidence of hydronephrosis or renal calculus. The ureters are unremarkable. PELVIS BLADDER: Unremarkable REPRODUCTIVE: Right ovarian cyst measuring 3.1 cm. ABDOMEN & PELVIS STOMACH AND BOWEL: No evidence of bowel obstruction. Gastric lumen is distended with ingested content s. PERITONEUM/RETROPERITONEUM: No evidence of pneumoperitoneum or free fluid. VASCULATURE: No evidence of aortic aneurysm. MUSCULOSKELETAL: No acute osseous abnormalities LYMPH NODES: No gross evidence for lymphadenopathy. SOFT TISSUE/ABDOMINAL WALL: Tiny fat-containing umbilical hernia. IMPRESSION: 1. No evidence for acute abdominal process. 2. Colonic diverticulosis. 3. Right ovarian cyst measuring 3.1 cm.
[2024-01-30 19:03] LABS: Appearance,Urine Clear (Clear); Bilirubin,Urine Negative (Negative); Blood,Urine Small (Negative); Color,Urine Colorless; Glucose,Urine (UA) Negative (Negative); Ketones,Urine Negative (Negative); Leukocyte Esterase,Urine Negative (Negative); Nitrite,Urine Negative (Negative); PH, Urine 5.5 (5.0-8.0); Protein,Urine Negative (Negative); RBC,Urine 2 /hpf (0-5); Squamous Epithelial Cell,Urine 1 /hpf (0-4); Urobilinogen,Urine <2.0 mg/dL (<2.0); WBC,Urine <1 /hpf (0-5)
[2024-01-30 19:07] LABS: Specific Gravity,Urine >1.050 (1.001-1.035)
[2024-01-30 19:36] VITALS: BP 106/70; PULSE 53; TEMP 98.6
== END 2024-01-30 19:39 | disposition home or self-care (01) ==
LOC: EC 15:50
DX: F79 Unspecified intellectual disabilities (principal); R10.9 Unspecified abdominal pain; K21.9 Gastro-esophageal reflux disease without esophagitis; Z91.040 Latex allergy status; Z88.8 Allergy status to other drugs, medicaments and biological substances
CPT/HCPCS: 36415; 80053; 82150; 83605; 83690; 85025; 81001; 81025; 74177; 99284; 96374; 96375; 96361; J2405; C9113; Q9967

== ENCOUNTER 2024-02-27 13:15 | Emergency (ER) | payer MEDICARE, OTHER ==
[2024-02-27 13:18] VITALS: BP 123/85; PULSE 95; RESP 18; TEMP 98.1
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
== END 2024-02-27 13:54 | disposition home or self-care (01) ==
LOC: EC 13:15
DX: T18.2XXA Foreign body in stomach, initial encounter (principal); Z91.040 Latex allergy status; Z88.8 Allergy status to other drugs, medicaments and biological substances
CPT/HCPCS: 99282

== ENCOUNTER 2024-03-19 13:43 | Emergency (ER) | payer MEDICARE, OTHER | END 2024-03-19 16:10 | disposition home or self-care (01) | LOC: EC 13:43 | DX: T19.2XXA Foreign body in vulva and vagina, initial encounter (principal); W44.8XXA Other foreign body entering into or through a natural orifice, initial encounter | CPT/HCPCS: 99282 ==

== ENCOUNTER 2024-06-22 10:44 | Emergency (ER) | payer MEDICARE, OTHER ==
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
[2024-06-22 11:58] VITALS: BP 115/68; PULSE 72; RESP 18; TEMP 97.9
== END 2024-06-22 12:35 | disposition home or self-care (01) ==
LOC: EC 10:44
DX: Z71.1 Person with feared health complaint in whom no diagnosis is made (principal); Z88.8 Allergy status to other drugs, medicaments and biological substances; Z91.040 Latex allergy status
CPT/HCPCS: 99283

== ENCOUNTER 2024-10-22 21:23 | Emergency (ER) | payer MEDICARE, OTHER ==
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
[2024-10-23 00:34] LABS: Basophils % (A) 0 %; Eosinophils % (A) 0 %; HCT 45.9 % (34.0-46.0); HGB 15.3 gm/dL (11.4-16.0); Lymphocytes # (A) 0.6 k/uL (1.0-4.8); Lymphocytes % (A) 5 %; MCH 28.6 pg (25.0-35.0); MCHC 33.2 g/dL (31.0-37.0); Mean Platelet Volume 8.6; Monocytes # (A) 0.4 k/uL (0-1.0); Monocytes % (A) 3 %; Neutrophils # (A) 9.6 k/uL (1.3-7.7); Neutrophils % (A) 90 %; Platelet Count 292 k/uL (150-450); RBC 5.34 m/uL (3.80-5.40); RDW 12.9 % (11.5-15.5); WBC 10.7 k/uL (3.8-10.6)
[2024-10-23] MEDS: ONDANSETRON 4 MG/2 ML VIAL IVP STA (00:41)
[2024-10-23] MEDS: SODIUM CHLORIDE 0.9% 1,000 ML IV STA (00:41)
[2024-10-23] MEDS: METOCLOPRAMIDE 5 MG/ML 2 ML VIAL IVP STA (01:46)
[2024-10-23 03:07] LABS: ALT 22 U/L (4-34); AST 38 U/L (14-36); African American GFR (CKD) 50 (>60 ml/min/1.73 sqM); Albumin 4.4 g/dL (3.5-5.0); Alkaline Phosphatase 95 U/L (38-126); Amylase 38 U/L (30-110); Anion Gap 14 mmol/L; Blood Urea Nitrogen 25 mg/dL (7-17); Calcium 9.6 mg/dL (8.4-10.2); Carbon Dioxide 21 mmol/L (22-30); Chloride 99 mmol/L (98-107); Glucose 105 mg/dL (74-99); Lipase 21 U/L (23-300); Non-African American GFR(CKD) 43 (>60 ml/min/1.73 sqM); Potassium 3.6 mmol/L (3.5-5.1); Sodium 134 mmol/L (137-145); Total Bilirubin 0.7 mg/dL (0.2-1.3)
[2024-10-23 03:58] VITALS: BP 117/74; PULSE 98; RESP 18; TEMP 97.8
== END 2024-10-23 04:01 | disposition home or self-care (01) ==
LOC: EC 21:23
DX: R11.2 Nausea with vomiting, unspecified (principal); E86.0 Dehydration
CPT/HCPCS: 36415; 93005; 80053; 82150; 83690; 84484; 85025; 99285; 96374; 96375; 96361; J2765; J2405